=== PATIENT | female | born 2005 | race Asian ===

== ENCOUNTER 2025-01-23 11:50 | Emergency (ER) | payer BC, SELFPAY ==
[2025-01-23 11:58] VITALS: BP 131/89; PULSE 86; RESP 16; TEMP 36.7; O2SAT 99; BMI 20.3
--- NOTE | 2025-01-23 12:03 | ED_ITS ---
HPI - General Adult General Chief complaint: General Medical Stated complaint: n/v, brain fog, sent to r/o internal bleeding Time Seen by Provider: 01/23/25 18:11 Source: patient and family Mode of arrival: ambulatory Limitations: no limitations History of Present Illness ED Provider: Dr. Estela Marie HPI narrative: patient comes to the emergency room complaining of black stool. Patient states that 1 week ago she started taking Effexor. Patient states that she has been experiencing depersonalization . patient has been in touch with her prescriber. However, there was a concern that the patient had black stool. Patient denies any abdominal pain. Denies any rectal pain. Denies any GI issues in the past. Related Data Allergies Allergy/AdvReac Type Severity Reaction Status Date / Time shellfish derived [shellfish] Allergy Severe Anaphylaxis Verified 01/23/25 12:03 Review of Systems 2 Review of Systems: Constitutional : No Weight loss, No Fever, No Chills, No Night Sweats, No Fatigue, No Malaise ENT/Mouth : No Hearing loss, No Ear Pain, No Nasal Congestion, No Sinus Pain, No Hoarseness, No sore throat, No Rhinorrhea, No Swallowing Difficulty Eyes: No Eye Pain, No Swelling, No Redness, No Foreign Body, No Discharge, No Vision Changes Cardiovascular : No Chest Pain, No SOB, No Dyspnea on Exertion, No Orthopnea, No Edema, No Palpitations Respiratory : No Cough, No Sputum, No Wheezing, No Smoke Exposure, No Dyspnea Gastrointestinal : No Nausea, No Vomiting, No Diarrhea, No Constipation, No abdominal Pain, Complaining of black stool Genitourinary : no irregular bleeding, No Dysuria, No Urinary Frequency, No Hematuria, No Urinary Incontinence, No Urgency, No Flank Pain, No Urinary Flow Changes, No Hesitancy Musculoskeletal : No joint pain, No Myalgias, No Joint Swelling Skin : No Skin Lesions, No rash Neuro : No Weakness, No Numbness, No Paresthesias, No Loss of Consciousness, No Dizziness, No Headache Psych : complaining of behavioral changes after taking Effexor, at this time denies feeling depressed or anxious, No SI/HI/AH/VH, No Social Issues, Heme/Lymph: No Bruising, No Bleeding,No Lymphadenopathy Endocrine : No Polyuria, No Polydipsia, No Temperature Intolerance PMF Social History Social History Advance Directives: No Advance Directives Information Provided: No Do you have a plan to hurt others: No Plan Physical Exam ED Vital Signs: Vital Signs - 24 hr 01/23/25 11:58 01/23/25 17:51 Temperature 98.1 F 97.5 F Pulse Rate 86 99 Respiratory Rate 16 16 Blood Pressure 131/89 123/93 H Pulse Oximetry 99 99 Oxygen Delivery Method Room Air Room Air BMI result Body Mass Index 20.3 Const Other: Appearance: Alert. Oriented X3. No acute distress. Eyes: Pupils equal, round and reactive to light. ENT: Pharynx normal. Neck: Normal inspection. Neck supple. No lymph nodes noted. No crepitus CVS: Normal heart rate and rhythm. Pulses normal. Normal S1 and S2 Respiratory: No respiratory distress. Breath sounds normal. No Wheezing. No rales Abdomen: Soft and nontender. No rigidity. No distention. Skin: Skin warm and dry. Normal skin color. Normal skin turgor. Extremities: No lower extremity edema. No Lacerations. No Rash Neuro: Oriented X 3. No motor deficit. No sensory deficit. Moving all extremities. No slurred speech. CN 2 through 12 grossly intact Psych: calm, cooperative, normal affect Course Course Course Narrative: RME, this is a rapid medical exam performed by Cisco Spencer please refer to primary provider for complete H&P- 19-year-old female presents for evaluation of black stool that she describes as a tarry consistency. She was discussing with her primary doctor who recently started her on Effexor. She was referred did not to the ER due to complaining of black stool over the last 2 days. She denies any abdominal pain, bright red stool. She was not on any anticoagulation and has not been using aspirin or NSAIDs. Plan for labs Medical Decision Making Medical Decision Making [facility] [place] Narrative: my interpretation of labs: Normal hematology and chemistry, negative hCG, normal urine, guaiac test is heme negative I discussed with the patient that her stool test was negative for blood. Patient has no abdominal symptoms. It may be secondary to a pigment in the new medication versus something patient may have eaten. Lab Data [facility] [place] Lab Attestation statement: I reviewed the patient's lab results. 01/23/25 12:39 01/23/25 12:39 Labs: Lab Results 01/23/25 01/23/25 Range/Units 12:39 18:44 WBC 4.4 L (4.8-10.8) X10*3/uL RBC 4.70 (4.20-5.50) X10*6/uL Hgb 14.6 (12.0-16.0) g/dl Hct 42.0 (37.0-47.0) % MCV 89.4 (80.0-98.0) fL MCH 31.1 (27.0-33.0) pg MCHC 34.8 (31.0-35.0) g/dl RDW 11.9 (11.0-16.0) % Plt Count 221 (160-400) X10*3/uL MPV 9.7 (9.4-12.3) fL Immature Gran % (Auto) 0.2 (0.0-0.4) % Neut % (Auto) 59.8 (45-73) % Lymph % (Auto) 31.7 (20-40) % [place] % (Auto) 6.9 (2-11) % Eos % (Auto) 0.7 (0-4) % Baso % (Auto) 0.7 (0-2) % Lymph # (Auto) 1.4 (1.2-4.9) X10*3/uL [place] # (Auto) 0.3 (0.1-1.2) X10*3/uL Eos # (Auto) 0.0 (0.0-0.4) X10*3/uL Baso # (Auto) 0.0 (0.0-0.2) X10*3/uL Abs Immat Gran (auto) 0.01 (0.00-0.03) X10*3/uL Absolute Neuts (auto) 2.6 (2.0-8.3) x10*3/uL Absolute Nucleated RBC 0.000 (0.0-0.012) X10*3/uL Nucleated RBC % (auto) 0.0 (0.0-0.2) /100WBC Sodium 139 (135-145) mmol/L Potassium 4.2 (3.3-5.1) mmol/L Chloride 105 (96-108) mmol/L Carbon Dioxide 27 (22-29) mmol/L Anion Gap 11 L (12-20) BUN 11 (9-16) mg/dL Creatinine 0.72 (0.5-1.4) mg/dL Estim Creat Clear Calc 103.1 Estimated GFR > 60 Random Glucose 90 (60-115) mg/dL Calcium 9.4 (8.4-10.2) mg/dL Magnesium 2.4 (1.6-2.6) mg/dL Total Bilirubin 0.5 (0.0-1.0) mg/dL AST 21 (5-31) U/L ALT 11 (0-31) U/L Alkaline Phosphatase 71 (39-117) U/L Total Protein 8.2 H (6.5-8.0) g/dL Albumin 4.6 (3.5-5.0) g/dL Lipase 41 (8-78) U/L Beta HCG, Quant < 2 mIU/mL Urine Color Yellow Urine Appearance Clear Urine pH 5.5 (5.0-9.0) Ur Specific [place] 1.010 (1.005-1.025) Urine Protein Negative (Neg-Trace) mg/dL Urine Glucose (UA) Negative (Negative) mg/dL Urine Ketones Negative (Negative) mg/dL Urine Blood Negative (Negative) Urine Nitrite Negative (Negative) Ur Leukocyte Esterase Negative (Negative) Urine RBC 0-2 (0-2) /HPF Urine WBC 0-5 (0-5) /HPF Ur Squamous Epith Cells 0-2 (0-2) /HPF Urine Bacteria None Seen (None Seen) Hyaline Casts 0-2 (0-2) /LPF Stool Occult Blood NEGATIVE (NEGATIVE) Discharge Plan Discharge Clinical Impression: Black stool, Medication side effect Patient Disposition: Home, Self-Care Instructions: Melena (ED) Additional Instructions: Your stool test was negative for blood. Please follow-up with your primary care physician tomorrow. If you continue having any side effects from your medication, please contact your primary care physician or the prescriber for further instructions. If you have any worsening or new symptoms, please return to the emergency room or call 911 Print Language: Norwegian
[2025-01-23 12:43] LABS: MANUAL DIFF FLAG NO
[2025-01-23 12:51] LABS: Basophils Percent Auto 0.7 % (0-2); Eosinophils Percent Auto 0.7 % (0-4); Hemoglobin 14.6 g/dl (12.0-16.0); Imm Gran Abs Auto 0.01 X10*3/uL (0.00-0.03); Imm Gran Pct Auto 0.2 % (0.0-0.4); Lymphocytes Absolute Auto 1.4 X10*3/uL (1.2-4.9); Lymphocytes Percent Auto 31.7 % (20-40); Mean Corpuscular HGB Conc 34.8 g/dl (31.0-35.0); Mean Corpuscular Hemoglobin 31.1 pg (27.0-33.0); Mean Corpuscular Volume 89.4 fL (80.0-98.0); Mean Platelet Volume 9.7 fL (9.4-12.3); Monocytes Absolute Auto 0.3 X10*3/uL (0.1-1.2); Monocytes Percent Auto 6.9 % (2-11); Neutrophils Absolute Auto 2.6 x10*3/uL (2.0-8.3); Neutrophils Percent Auto 59.8 % (45-73); Platelet Count 221 X10*3/uL (160-400); Red Cell Distribution Width 11.9 % (11.0-16.0); White Blood Count 4.4 X10*3/uL (4.8-10.8)
[2025-01-23 13:05] LABS: Alanine Aminotransferase 11 U/L (0-31); Albumin Level 4.6 g/dL (3.5-5.0); Alkaline Phosphatase 71 U/L (39-117); Anion Gap 11 (12-20); Aspartate Amino Transferase 21 U/L (5-31); Bilirubin Total 0.5 mg/dL (0.0-1.0); Blood Urea Nitrogen 11 mg/dL (9-16); Calcium 9.4 mg/dL (8.4-10.2); Carbon Dioxide 27 mmol/L (22-29); Chloride 105 mmol/L (96-108); Creatinine Clr Calc Pharmacy 103.1; Estimated Glomerular Filt Rate > 60; Glucose Random 90 mg/dL (60-115); Lipase 41 U/L (8-78); Magnesium 2.4 mg/dL (1.6-2.6); Potassium 4.2 mmol/L (3.3-5.1); Sodium 139 mmol/L (135-145); Total Protein 8.2 g/dL (6.5-8.0)
[2025-01-23 13:08] LABS: HCG Quantitative < 2 mIU/mL
[2025-01-23 17:51] VITALS: BP 123/93; PULSE 99; RESP 16; TEMP 36.4; O2SAT 99
--- NOTE | 2025-01-23 18:09 | PC.NURSE ---
pt is well appearing. denies nausea. has slight headache. no neuro deficits. attributes fog to new medication. NAD. awaits provider.
[2025-01-23 18:55] LABS: Appearance Urine Clear; Color Urine Yellow; Glucose Urine UA Negative (Negative); Leukocyte Esterase Urine Negative (Negative); Nitrite Urine Negative (Negative); PH 5.5 (5.0-9.0); Urine Blood Negative (Negative); Urine Ketones Negative (Negative); Urine Protein Negative (Neg-Trace)
[2025-01-23 18:57] LABS: Bacteria Urine None Seen (None Seen); Hyaline Casts Urine 0-2 /LPF (0-2); OBS Int Ctl Valid YES; OBS1 NEGATIVE (NEGATIVE); RBC Urine 0-2 /HPF (0-2); Squamous Epithelial Cell Urine 0-2 /HPF (0-2); WBC Urine 0-5 /HPF (0-5)
--- OUTSIDE RECORDS SUMMARY | 2025-01-23 19:14 | XMS_ITS ---
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 Stay hydrated and continue to rest. Pt vitals are normal. Ambulated out nad noted, states she is not dizzy and no sob at time of discharge FOLLOW UP [place] with Vianey Zee APN 11/22/2021 Last Documented On 2 3:09PM ; [facility] Ordered return to the clinic if condition worsens or new symptoms arise FOLLOW UP [place] with Don MICHAUD 11/13/2021 Last Documented On 2 6:09PM ; [facility] PLAN [Use for s.o.a.p. note free text] FOLLOW UP [place] with Don MICHAUD 11/13/2021 Last Documented On 2 6:09PM ; Urgent [facility] Ordered go to the emergency room if condition worsens FOLLOW UP [place] with Jyoti Butler M.D. 06/09/2018 Last Documented On 8 10:22AM ; Urgent [facility] Ordered return to the clinic if condition worsens or new symptoms arise FOLLOW UP [place] with Jyoti Butler M.D. 06/09/2018 Last Documented On 8 10:22AM ; [facility] Pending Tests Order Diagnosis Results Due Ordering P rovider Lab AMYLASE 11/11/17 Tracy Yap [employer] SUPERVISOR Last Documented On 8 12:35PM ; [facility] Lab COMPREHENSIVE METABOLIC PROFILE 10/29 01/13 Tracy Yap [employer] SUPERVISOR Last Documented On 8 12:35PM ; [facility] Lab LIPASE 11/11/17 Tracy Yap [employer] SUPERVISOR Last Documented On 8 12:35PM ; [facility] Lab COMPLETE BLOOD COUNT (CBC) WITHDIFFERENTIAL 11/11/17 Tracy Yap [employer] SUPERVISOR Last Documented On 8 12:35PM ; [facility] Labs Order COVID19 SARS PCR Encounter for s creening for COVID-19 11/13/21 Don MICHAUD Last Documented On 2 2:42PM ; [facility] Education and Decision Aids were provided during visit for: Education and counseling Last Documented On 2 2:32PM ; [facility] Assessments Includes: Assessments for all patient encounters Findings Encounter Date Cough Acute URI Dyspnea Ches t pain r/o ACS FOLLOW UP [place] with Don MICHAUD 11/13/2021 Last Documented On 2 6:09PM ; [facility] Acute pharyngitis FOLLOW UP [place] with Jyoti mendoza M.D. 06/09/2018 Last Documented On 8 10:22AM ; [facility] Otitis media FOLLOW UP [place] with Jyoti moraes M.D. 06/09/2018 Last Documented On 8 10:22AM ; [facility] Abdominal pain NEW PATIENT [place] with Tracy edwards [employer] SUPERVISOR 11/04/2017 Last Documented On 8 12:45PM ; [facility] Instructions Includes: Instructions for all patient encounters Education and Decision Aids were provided during visit for: Education and counseling Last Documented On 2 2:32PM ; [facility] Medical Equipment - Implanted Devices Includes: Current and historical Devices No Medical Equipment Recorded Medications Includes: Current and historical Medications Past Medications on file Promethazine-DM 6.25-15 MG/5ML Oral Syrup 11/13/2021 - 11/18/2021 Provider: Don MICHAUD Diagnosis: Cough, unspecifi ed Take 5ml by mouth every 6 hours as needed for co ugh Last Documented On 2 2:50PM By Don MICHAUD ; [facility] Albuterol Sulfate HFA 108 (90 Base) MCG/ACT Inhalation Aerosol Solution 11/13/2021 - 12/13/2021 Provider: Don MICHAUD Diagnosis: Dyspnea, unspeci fied Inhale 1-2 puffs every 4-6 h ours as needed for shortness of breath Last Documented On 2 2:50PM By Don MICHAUD ; [facility] Azithromycin 250mg Mouth/Throat Packet 11/13/2021 - Provider: Diagnosis: Last Documented On 2 6:36PM By Roxy Inman ; [facility] Amox[facility] 875MG Oral Tablet 06/09/2018 - 06/19/2018 Provider: Jyoti Butler M.D. Diagnosis: Acute serous nilson tis media, left ear 1 twice a day Last Documented On 8 10:16AM By Roxy Inman ; [facility] Medications Administered Includes: Administered Medications in patient's chart No Administered Medications Recorded Results Includes: Results from 01/24/2024 through 01/23/2025 No Results Recorded For Specified Dates History of Present Illness History of Present Illness not supported for this document type No History of Present Illness Recorded Social History Description Last Updated Caffeine use 11/13/2021 Last Documented On 2 6:09PM ; [facility] [place] Not a current smoker 11/13/2021 Last Documented On 2 6:09PM ; [facility] [place] Not using alcohol 11/13/2021 Last Documented On 2 6:09PM ; [facility] Not using drugs 11/13/2021 Last Documented On 2 6:09PM ; [facility] Smoking Status Unknown Procedures and Surgical History Surgical History Last Updated No surgical / procedural history or no s ignificant history 11/22/2021 Last Documented On 2 3:09PM ; [facility] Medical History Includes: Medical History in patient's chart Description Last Updated No medical history or no significant his tory 11/22/2021 Last Documented On 2 3:09PM ; [facility] h/o heart mumur 11/13/2021 Last Documented On 2 6:09PM ; [facility] No recent change in medical history 10/29 Last Documented On 2 6:09PM ; [facility] Family History Includes: Family History in patient's chart No Family History Recorded Review of Systems Review of Systems not supported for this document type No Review of Systems Recorded Mental Status Description Oriented to time, place, and person No anxiety Functional Status No Functional Status Recorded Physical Exam Physical Exam not supported for this document type No Physical Exam Recorded Allergies Includes: Active, inactive, and resolved Allergies No Known Allergies Insurance Includes: Active Insurance Policies Plan Name Member ID Group # Subscriber Relationship Effect shannon Dates 1 - [facility] S CODE FACILITY BILLING [id number] Beto Brady Child 10/11/2011 - Unknown Clinical Notes Includes: Signed Clinical Notes starting from 09/01/2022 No Clinical Notes Recorded
--- OUTSIDE RECORDS SUMMARY | 2025-01-23 19:14 | XMS_ITS | CCD ---
Author Name Donnell CANO, Hina Address [address] [place] [address] Phone Organization [facility] Phone Care Team Providers Care Nursing Tech Name Role Phone Bela Fenton DO Primary Care Provider Un available Unavailable Chronic Care Management Unavaila ble Summary Purpose DataExchange Insurance Providers Payer name Policy type / Coverage type Covered constitution party ID Effective Begin Date Effective End Date [facility] [id number] Unknown Unknown Family History Family History data not found Problems Condition Codes Effective Dates Condition St atus Hyperlipidemia Unknown 04/21/2023 Active Mixed hyperlipidemia ICD-10: E78.2 ICD-9: 272.4 04/21/2023 Active Medication Administered No Medication Administered data Results Observation Observation Code Item Item Code Result Date Service Location CBC W/DIFF 924863 WBC 6.5 x10E3/uL [address] [facility] [address] [id number] CBC W/DIFF 771656 RBC 4.89 x10E6/uL [address] [facility] [address] [id number] CBC W/DIFF 019132 Hemoglobin 14.7 g/dL [address] [facility] [address] [id number] CBC W/DIFF 412434 Hematocrit 43.0 % [address] [facility] [address] [id number] CBC W/DIFF 017655 MCV 88 fL [address] [facility] [address] [id number] CBC W/DIFF 288612 MCH 30.1 pg [address] [facility] [address] [id number] CBC W/DIFF 053582 MCHC 34.2 g/dL 023 [facility] [address] [place], [place] [id number] CBC W/DIFF 300664 RDW 12.6 % [address] [facility] [address] [id number] CBC W/DIFF 377765 Platelets 284 x10E3/uL [address] [facility] [address] [id number] CBC W/DIFF 633449 Neutrophils 66 % [address] [facility] [address] [id number] CBC W/DIFF 150653 Lymphs 27 % [address] [facility] [address] [id number] CBC W/DIFF 779830 Monocytes 6 % [address] [facility] [address] [id number] CBC W/DIFF 235197 Eos 1 % [address] [facility] [address] [id number] CBC W/DIFF 512776 Basos 0 % [address] [facility] [address] [id number] CBC W/DIFF 228037 Immature Cells 03/29 09/29 [address] [facility] [address] [id number] CBC W/DIFF 975660 Neutrophils (Absolute) 4.2 x10E3/uL [address] [facility] [address] [id number] CBC W/DIFF 040493 Lymphs (Absolute) 1.8 x10E3/uL [address] [facility] [address] [id number] CBC W/DIFF 516053 Monocytes(Absolu t e) 0.4 x10E3/uL [address] [facility] [address] [id number] CBC W/DIFF 716093 Eos (Absolute) 0.1 x10E3/uL [address] [facility] [address] [id number] CBC W/DIFF 204775 Baso (Absolute) 0.0 x10E3/uL [address] [facility] [address] [id number] CBC W/DIFF 507200 Immature Granulocytes 0 % [address] [facility] [address] [id number] CBC W/DIFF 404999 Immature Grans (Abs) 0.0 x10E3/uL [address] [facility] [id number] CBC W/DIFF 900221 NRBC [facility] [facility] [id number] CBC W/DIFF 260201 Hematology Comments: [address] [id number] LIPID PANEL 515570 Cholesterol, Total 135 mg/dL [address] [facility] [id number] LIPID PANEL 935168 Triglycerides 121 mg/dL 03/29 09/[address] [id number] LIPID PANEL 417767 HDL Cholesterol 2085-9 41 mg/dL [address] [id number] LIPID PANEL 857916 VLDL Cholesterol Sam 22 mg/dL [address] [id number] LIPID PANEL 995185 LDL Chol Calc ([facility]) 72 mg/dL 0[address] [facility] [id number] LIPID PANEL 664239 Comment: [address] [id number] Urinalysis, Routine 415411 Specific [place] 1.017 [address] [facility] [id number] Urinalysis, Routine 172443 pH 5.[address] [id number] Urinalysis, Routine 908975 Urine-Color Yellow [address] [facility] [id number] Urinalysis, Routine 969181 Appearance Clear [address] [id number] Urinalysis, Routine 585459 WBC Esterase Negative [address] [facility] [id number] Urinalysis, Routine 324339 Protein Negative 023 [facility] [place] [address] [place] [address] [id number] Urinalysis, Routine 025252 Glucose Negative 023 [facility] [place] [address] [place] [address] [id number] Urinalysis, Routine 118289 Ketones Negative 023 [facility] [address] [place] [address] [id number] Urinalysis, Routine 258746 Occult Blood 3+ [address] [facility] [address] [id number] Urinalysis, Routine 685855 Bilirubin Negative [address] [facility] [address] [id number] Urinalysis, Routine 265391 Urobilinogen,Semi -Qn 0.2 mg/dL [address] [facility] [address] [id number] Urinalysis, Routine 385225 Nitrite, Urine Negative [address] [facility] [address] [id number] Urinalysis, Routine 261986 Microscopic Examination See below: 023 [facility] [place] [address] [place] [address] [id number] Microscopic Examination 318052 WBC 6-10 /hpf 023 [facility] [place] [address] [place] [address] [id number] Microscopic Examination 549530 RBC >30 /hpf 023 [facility] [place] [address] [place] [address] [id number] Microscopic Examination 401073 Epithelial Cells (non renal) 0-10 /hpf 023 [facility] [place] [address] [place] [address] [id number] Microscopic Examination 800849 Epithelial Cells (renal) [address] [facility] [address] [id number] Microscopic Examination 400038 Casts None seen /lpf 023 [facility] [place] [address] [place] [address] [id number] Microscopic Examination 718437 Cast Type 023 [facility] [place] [address] [place] [address] [id number] Microscopic Examination 057752 Crystals [address] [facility] [address] [id number] Microscopic Examination 106733 Crystal Type 023 [facility] [address] [place] [id number] Microscopic Examination 536139 Mucus Threads [address] [facility] [address] [id number] Microscopic Examination 550293 Bacteria None seen [address] [facility] [address] [id number] Microscopic Examination 831105 Yeast 0[address] [facility] [id number] Microscopic Examination 563032 Trichomonas [address] [facility] [address] [id number] Microscopic Examination 014480 Comment [address] [facility] [address] [id number] TSH 328276 TSH 1.630 uIU/mL [address] [facility] [address] [id number] COMPREHEN METABOLIC PANEL 2 180431 Glucose 88 mg/dL 023 [facility] [address] [id number] COMPREHEN METABOLIC PANEL 2 029452 BUN 3094-0 6 mg/dL [address] [facility] [address] [id number] COMPREHEN METABOLIC PANEL 2 963833 Creatinine 0.76 mg/dL [address] [facility] [address] [id number] COMPREHEN METABOLIC PANEL 2 780351 eGFR 116 mL/min/1.73 [address] [facility] [address] [id number] COMPREHEN METABOLIC PANEL 2 059099 BUN/Creatinine Ratio 8 [address] [facility] [address] [id number] COMPREHEN METABOLIC PANEL 2 614970 Sodium 138 mmol/L [address] [facility] [address] [id number] COMPREHEN METABOLIC PANEL 2 021872 Potassium 4.2 mmol/L [address] [facility] [address] [id number] COMPREHEN METABOLIC PANEL 2 292449 Chloride 103 mmol/L 023 [facility] [address] [id number] COMPREHEN METABOLIC PANEL 2 441237 Carbon Dioxide, Total 21 mmol/L 023 [facility] [address] [id number] COMPREHEN METABOLIC PANEL 2 106767 Calcium 9.5 mg/dL 0[address] [facility] [id number] COMPREHEN METABOLIC PANEL 2 930130 Protein, Total 7.6 g/dL [address] [id number] COMPREHEN METABOLIC PANEL 2 003166 Albumin 4.8 g/dL 0[facility] [id number] COMPREHEN METABOLIC PANEL 2 999903 Globulin, Total 2.8 g/dL [address] [id number] COMPREHEN METABOLIC PANEL 2 881751 A/G Ratio 1.[address] [id number] COMPREHEN METABOLIC PANEL 2 588475 Bilirubin, Total 0.5 mg/dL 0[facility] [id number] COMPREHEN METABOLIC PANEL 2 164706 Alkaline Phosphatase 85 IU/L 0[address] [facility] [id number] COMPREHEN METABOLIC PANEL 2 122337 AST (SGOT) 18 IU/L [address] [id number] COMPREHEN METABOLIC PANEL 2 445023 ALT (SGPT) 20 IU/L [address] [id number] Procedures Procedure Codes Date BMI < 30 AND > 22 was calculated and documented CPT-4: G8420 03/26/2023 SYST BP LT 130 MM HG CPT-4: 3074F 03/26/2023 DIAST BP <80 MM HG CPT-4: 3078F 03/26/2023 Vital Signs Date Vital 03/26/2023 Blood Pressure 1: 118/75 Code: 8480-6 BMI: 23.2 Code: 75558-1 Height: 5'3 Code: 8302-2 Weight: 131 lbs Code: 29313-1 Reason For Visit Reason For Visit Effective Dates Notes well woman exam (18-39 years) 03/26/2023 Encounters Encounter Performer Location Location Address Codes Date (31059) PREV VISIT NEW AGE 18-39 Diagnosis: Body mass index (BMI) pediatric, 5th percentile to less than 85th percentile for age[ICD10: Z68.52] Diagnosis: Encounter for general adult medical examination without abnormal findings[ICD10: Z00.00] Hina Donnell [facility] [address] [place] [address] CPT-4: 02602 03/26/2023 Plan of Care Planned Activity Notes Codes Status Date Care Plan: Lipid Panel With LDL/HDL Ratio (10-12 HOUR FAST) LOINC : 2088-09 Pending 04/23/2023 Appointment: Gretchen Zazueta WPtel: [id number] NEW PATIENT PCP 10/20 MIN 2022 Care Plan: CBC W/DIFF LOINC : 57 021-8 Ordered 03/26/2023 Care Plan: COMPREHEN METABOLIC PANEL LOINC : 97449-7 Ordered 03/26/2023 Care Plan: TSH Ordered 03/26/2023 Care Plan: Urinalysis, Routine Ordered 03/26/2023 Care Plan: Lipid Panel With LDL/HDL Ratio (10-12 HOUR FAST) LOINC : 2088-09 Ordered 03/26/2023 Instructions Comment Date get korina kelly due . 03/26/2023 Medical Equipment No Medical Equipment data Advance Directives No Advance Directive data
--- OUTSIDE RECORDS SUMMARY | 2025-01-23 19:14 | XMS_ITS | CCD ---
Author Name Hina Jacobo MD Address [address] [place] [address] Phone Organization [facility] Phone Care Team Providers Care Record Changer Tester Name Role Phone Bela Fenton DO Primary Care Provider Un available Unavailable Chronic Care Management Unavaila ble Summary Purpose DataExchange Insurance Providers Payer name Policy type / Coverage type Covered republican ID Effective Begin Date Effective End Date [facility] [id number] Unknown Unknown Family History Family History data not found Medication Administered No Medication Administered data Procedures Procedure Codes Date BMI < 30 AND > 22 was calculated and documented CPT-4: G8420 03/26/2023 SYST BP LT 130 MM HG CPT-4: 3074F 03/26/2023 DIAST BP <80 MM HG CPT-4: 3078F 03/26/2023 Vital Signs Date Vital 03/26/2023 Blood Pressure 1: 118/75 Code: 8480-6 BMI: 23.2 Code: 42500-3 Height: 5'3 Code: 8302-2 Weight: 131 lbs Code: 78889-5 Reason For Visit Reason For Visit Effective Dates Notes well woman exam (18-39 years) 03/26/2023 Encounters Encounter Performer Location Location Address Codes Date (44675) PREV VISIT NEW AGE 18-39 Diagnosis: Body mass index (BMI) pediatric, 5th percentile to less than 85th percentile for age[ICD10: Z68.52] Diagnosis: Encounter for general adult medical examination without abnormal findings[ICD10: Z00.00] [facility] [address] [place] [address] CPT-4: 91460 03/26/2023 Plan of Care Planned Activity Notes Codes Status Date Care Plan: CBC W/DIFF LOINC : 57 021-8 Ordered 03/26/2023 Care Plan: COMPREHEN METABOLIC PANEL LOINC : 25998-5 Ordered 03/26/2023 Care Plan: TSH Ordered 03/26/2023 Care Plan: Urinalysis, Routine Order ed 03/26/2023 Care Plan: Lipid Panel With LDL/HDL Ratio (10-12 HOUR FAST) LOINC : 2089-1 Ordered 03/26/2023 Instructions Comment Date get bw steffenkimberlyncordell due . 03/26/2023 Medical Equipment No Medical Equipment data Advance Directives No Advance Directive data
--- OUTSIDE RECORDS SUMMARY | 2025-01-23 19:14 | XMS_ITS | Referral Summary ---
Author Organization [facility] Address [address] [place] [phone] Phone Care Team Providers Care Data Modeling Specialist Name Role Phone Unavailable Primary Care Provider Unavailabl e Social History Tobacco Use Types Packs/Day Years Used Date Smoking Tobacco: Never Assessed Comments Unknown Sex and Gender Information Value Date Recorded Sex Assigned at Not on file Legal Sex Female 11:54 AM EDT Gender Identity Not on file Sexual Orientation Not on file Plan of Treatment Not on file Insurance STATE BENEFITS
--- OUTSIDE RECORDS SUMMARY | 2025-01-23 19:14 | XMS_ITS ---
Author Organization [facility] Address [address] [place] [address] Care Team Providers Care Fruit Or Nut Farm Worker Name Role Phone Paco Sherman Primary Care Provider REASON FOR VISIT PRTL: Accommodations for College Encounters Encounter Location Date Provider Diagnosis [address] [address] 08/08/2024 Paco Sherman PLAN OF TREATMENT No Information Progress Notes * Obie GUSTAFSONSandyOB:2005 (19 yo F)Acc No.[id number]:08/08/2024 Patient:??Poppy GUSTAFSON :2005?Age:19 Y?Sex:Fe male Address:[address] [place] [address] Subjective: * Chief Complaints: * ?PRTL: Accommodations f or College * Medical History:? * Surgical History:?? * Hospitalization/Major Diagno stic Procedure:?? * Medications:?? Objective: Assessment: Plan: * Treatment: * Procedure Codes:?? * true * Date:??
--- OUTSIDE RECORDS SUMMARY | 2025-01-23 19:14 | XMS_ITS | Clinical Summary ---
Author Organization [facility] Address [address] [place] [address] Care Team Providers Care Audiovisual Tech Name Role Phone Nikky Andrews MD Primary Care Provider Allergies Active Allergy Reactions Criticality Noted Date Comments Pollen Extract Itching Low 03/21/2024 Including some fruits Shellfish Anaphylaxis High 05/04/2023 Shellfish-Derived Products Anaphylaxis High 03/21/20 24 Medications EPINEPHrine 0.3 mg/0.3 mL SOAJ injection Inject 0.3 mL into the muscle one time. 04/07/2024 Active Active Problems No known active problems Immunizations Immunization Administration Dates Next Due DTaP 2005,2005 Dtap - Hib 08/13/2006 HIB external 2005 Hep A Vaccine Ped/adol-3 Dose 02/11/2007 Hep B, Unspecified Formulation 2005,2004 Hib (Prp-omp) 02/26/2006,2005 IPV 2005,2005 Influenza, High Dose Seasonal 05/29/2016, 013 MENINGOCOCCAL/MENOMUNE 05/29/2016 MMR 05/07/2006 Pediarix(diphtheria,tetanus, pertussis ,hep B,polio) 2005 Prevnar 7 Pediatric 05/07/2006, 5,2005,2004 TDaP 05/29/2016 Varicella 02/26/2006 Family History Medical History Relation Comments Diabetes Father MVA Father LINGERING NIURKA ISSUES FOLLLOWING MVA Diabetes Mother Hyperlipidemia Mother Hypertension Mother Arthritis Paternal Grandfather Gout Paternal Uncle Relation Status Comments Father Mother Paternal Grandfather Paternal Uncle Other Social History Tobacco Use Types Packs/Day Years Used Date Smoking Tobacco: Never Smokeless Tobacco: Never Alcohol Use Standard Drinks/Week Comments Yes 1 (1 standard drink = 0.6 oz pur e alcohol) Comments No Sex and Gender Information Value Date Recorded Sex Assigned at Not on file Legal Sex Female 2:57 PM EDT Gender Identity Not on file Sexual Orientation Not on file Last Filed Vital Signs Vital Sign Reading Time Taken Comments Blood Pressure 120/78 10/06/2024 8:58 AM EST Pulse - - Temperature 36.6 ??C (97.8 ??F) 10/06/2024 8:58 AM ES T Respiratory Rate - - Oxygen Saturation - - Inhaled Oxygen Concentration - - Weight 53.5 kg (118 lb) 10/06/2024 8:58 AM EST Height 160 cm (5' 3 ) 10/06/2024 8:58 AM EST Body Mass Index 20.9 10/06/2024 8:58 AM EST Plan of Treatment Upcoming Encounters Date Type Department Care Team (Late st Contact Info) Description 02/08/2025 9:00 AM EDT Office Visit [facility] - Rheumatology [address], [address] [place] [address] [facility] Lu [facility] [address] [place] [phone] Health Maintenance Due Date Last Done Comments HEPATITIS C SCREENING 2005 Hepatitis A Vaccine (2 of 2 - 2-dose series) 08/14/2007 02/11/2007 HIV SCREENING ONCE 02/06/2020 HPV Vaccine (1 - 3-dose series) 02/06/2020 LIPIDS 2023 COVID-19 Vaccine ( season) 2024 03/02/2021, 02/09/2021 INFLUENZA Vaccine (Season Ended) 2025 05/29/2016, 07/13/2013 DTAP/TDAP/TD Vaccine (6 - Td or Tdap) 05/29/2026 05/29/2016, 08/13/2006, 2005, Additional history exists ZOSTER VACCINES (1 of 2) 2055 Pneumococcal 0-49 Vaccine Aged Out 2005, 2005, 2005, Additional history exists No longer eligible based on patient's age to complete this topic MENINGITIS ACWY Vaccine Aged Out 05/29/2016 No l onger eligible based on patient's age to complete this topic Insurance [employer] Care Teams Audiovisual Tech Relationship Specialty Start Date End Date Nikky Andrews MD [address] [place] [id number] PCP - General Family Medicine 04/20/24
--- OUTSIDE RECORDS SUMMARY | 2025-01-23 19:14 | XMS_ITS ---
Author Organization [facility] [employer] [facility] Address [address] [place] [address] Care Team Providers Care Airline Mechanic Name Role Phone Paco Sherman Primary Care Provider Nikky Woodward [phone] REASON FOR VISIT PRTL: Accommodations for College Encounters Encounter Location Date Provider Diagnosis [address] [address] 04/28/2024 Nikky Woodward PLAN OF TREATMENT No Information Progress Notes * GUSTAFSON, LianetOB:2005 (19 yo F)Acc No.[id number]:04/28/2024 Patient:??Poppy GUSTAFSON :2005?Age:19 Y?Sex:Fe male Address:[address] [place], [place] [id number] Subjective: * Chief Complaints: * ?PRTL: Accommodations f or College * Medical History:? * Surgical History:?? * Hospitalization/Major Diagno stic Procedure:?? * Medications:?? Objective: Assessment: Plan: * Treatment: * Procedure Codes:?? * true * Date:??
--- OUTSIDE RECORDS SUMMARY | 2025-01-23 19:14 | XMS_ITS | Clinical Summary ---
Author Organization [facility] Address [address] [place] [address] Phone Care Team Providers Care Air Conditioning Insulation Installer Name Role Phone Unavailable Unavailable Unavailable Reason for Visit and Chief Complaint The Chief Complaint is: Pt presents in the clinic for work physical Problems Includes: Problems addressed during this encounter and other active Problems No Active Problems Plan of Treatment -Patient here for work physical -Physical exam unremarkable and vital signs stable -Forms filled and returned to patient/family -Follow up with PMD yearly for well visit and vaccines or sooner if needed -Encouraged to obtain COVID booster vaccine - Last Documented On 03/25/2022 6:43PM ; [facility] Pending Tests Order Diagnosis Results Due Ordering P rovider Labs Order COVID19 SARS PCR Encounter for s creening for COVID-19 11/13/21 Don MICHAUD Last Documented On 2 2:42PM ; [facility] OFFICE PROCEDURES VISUAL ACUITY SCREEN Encounter for other general examination 03/25/22 Don MICHAUD Last Documented On 2 6:41PM ; [facility] Assessments Includes: Assessments from this encounter No Assessments Recorded Medical Equipment - Implanted Devices Includes: Current Devices No Medical Equipment Recorded Medications Includes: Medications discussed during this encounter and other current Medications Discontinued / Stopped on this date on 11/13/2021 Azithromycin 250mg Mouth/Throat Packet Pr ovider: Diagnosis: Last Documented On 2 6:36PM By Roxy Inman ; [facility] Past Medications on file Promethazine-DM 6.25-15 MG/5ML Oral Syrup 11/13/2021 - 11/18/2021 Provider: Don MICHAUD Diagnosis: Cough, unspecifi ed Take 5ml by mouth every 6 hours as needed for co ugh Last Documented On 2 2:50PM By Don MICHAUD ; [facility] Albuterol Sulfate HFA 108 (90 Base) MCG/ACT Inhalation Aerosol Solution 11/13/2021 - 12/13/2021 Provider: Don MICHAUD Diagnosis: Dyspnea, unspeci fied Inhale 1-2 puffs every 4-6 h ours as needed for shortness of breath Last Documented On 2 2:50PM By Don MICHAUD ; [facility] Amoxicillin 875MG Oral Tablet 06/09/2018 - 06/19/2018 Provider: Jyoti Butler M.D. Diagnosis: Acute serous nilson tis media, left ear 1 twice a day Last Documented On 8 10:16AM By Roxy Inman ; [facility] Medications Administered Includes: Administered Medications from this encounter No Administered Medications Recorded Vital Signs Includes: Vital Signs from this encounter Vital Name 03/25/2022 06:26P Blood Pressure Sitting (mmHg) 97/67 Pulse Rate-Sitting (bpm) 87 Temp-Oral (F) 97.4 Height (in) 63 Weight (lb) 110 Body Mass Index (kg/m2) 19.5 BMI Percentile (percentile) 30 Body Surface Area (m2) 1.5 Oxygen Saturation (%) 99 Last Documented: On 03/25/2022 6:28PM ; [facility] Results Includes: Results discussed during this encounter No Results Recorded For Specified Dates History of Present Illness Includes: History of Present Illness from this encounter STEPHY Brady is a 17 year old female. 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 Feeling well. Denies any complaints. Denies any family history of sudden cardiac . Immunizations up to date. Vaccinated for COVID x2 (february 2021). Social History Description Last Updated Caffeine use 11/13/2021 Last Documented On 2 6:29PM ; [facility] Not a current smoker 11/13/2021 Last Documented On 2 6:29PM ; [facility] Not using alcohol 11/13/2021 Last Documented On 2 6:29PM ; [facility] Not using drugs 11/13/2021 Last Documented On 2 6:29PM ; [facility] Smoking Status Unknown Procedures and Surgical History Includes: Procedures from this encounter Procedures Code Diagnosis Performing Provider Service L ocation Service Date education and instructions Last Documented On 2 6:41PM ; [facility] VL- ~VR- ~Both- ~Correct ed Last Documented On 2 6:31PM ; [facility] Surgical History Last Updated No surgical / procedural history or no s ignificant history 11/22/2021 Last Documented On 2 6:29PM ; [facility] Medical History Includes: Medical History addressed during this encounter Description Last Updated No medical history or no significant his tory 11/22/2021 Last Documented On 2 6:29PM ; [facility] No recent change in medical history 10/29 Last Documented On 2 6:29PM ; [facility] Family History Includes: Family History addressed during this encounter No Family History Recorded Review of Systems Includes: Review of Systems from this encounter Systemic: Not feeling poorly (malaise). No fever, no chills, no night sweats, and no recent weight change. No night sweats. Head: No headache, no facial pain, and no sinus pain. Neck: No neck pain, no neck stiffness, and no lump or swelling in the neck. Eyes: No vision problems and no eye pain. Otolaryngeal: No hearing loss, no earache, no nasal discharge, no epistaxis, no hoarseness, no sore throat, and no mouth sores. Cardiovascular: No chest pain or discomfort, no palpitations, and the heart rate was not fast. Pulmonary: No dyspnea, no cough, no hemoptysis, and no wheezing. Gastrointestinal: Normal appetite, no dysphagia, and no heartburn. No nausea, no vomiting, no abdominal pain, and no melena. No diarrhea. Genitourinary: No hematuria and no increase in urinary frequency. No dysuria. Musculoskeletal: No muscle aches, no localized joint pain, and no localized joint stiffness. Neurological: No dizziness, no vertigo, no fainting, no motor disturbances, and no sensory disturbances. Psychological: No anxiety, no depression, and no sleep disturbances. Skin: No pruritus. No skin lesions and no rash. Mental Status Includes: Mental Status from this encounter Description Oriented to time, place, and person No anxiety Functional Status Includes: Functional Status from this encounter No Functional Status Recorded Physical Exam Includes: Physical Exam from this encounter Allergies Includes: Active Allergies No Known Allergies Encounters Encounter Provider Location Date Check-In Time Check-Out Time Diagnosis Work Physical Don MICHAUD [facility] 03/25/20 22 6:23PM 6:50PM Insurance Includes: Active Insurance Policies Plan Name Member ID Group # Subscriber Relationship Effect shannon Dates - [facility] S CODE FACILITY BILLING [id number] Beto Brady 10/11/2011 - Unknown Clinical Notes Includes: Clinical Notes from this encounter No Clinical Notes Recorded
--- OUTSIDE RECORDS SUMMARY | 2025-01-23 19:14 | XMS_ITS | CCD ---
Author Name Mica Fenton DO, cia S Address [address] [place] [address] Phone Organization [employer] Phone Care Team Providers Care Accounting Clerk Name Role Phone Bela Fenton DO Primary Care Provider Un available Unavailable Chronic Care Management Unavaila ble Summary Purpose DataExchange Insurance Providers Payer name Policy type / Coverage type Covered democrat ID Effective Begin Date Effective End Date [facility] [id number] Unknown Unknown Family History Family History data not found Problems Condition Codes Effective Dates Condition St [facility]us Hyperlipidemia Unknown 04/21/2023 Active Mixed hyperlipidemia ICD-10: E78.2 ICD-9: 272.4 04/21/2023 Active Medication Administered No Medication Administered data Reason For Visit No Reason For Visit data Plan of Care Planned Activity Notes Codes Status Date Care Plan: Lipid Panel With LDL/HDL Ratio (10-12 HOUR FAST) LOINC : 2089-1 Pending 04/23/2023 Appointment: Gretchen Zazueta WPtel: [id number] NEW PATIENT PCP 10/20 MIN 2022 Medical Equipment No Medical Equipment data Advance Directives No Advance Directive data
--- OUTSIDE RECORDS SUMMARY | 2025-01-23 19:14 | XMS_ITS | Clinical Summary ---
Author Organization [facility] Address [address] [place] [address] Phone Care Team Providers Care Online Media Buyer Name Role Phone Unavailable Unavailable Unavailable Reason for Visit and Chief Complaint The Chief Complaint is: 16y/old headache nasal congestion, vomiting, cough x 5days Problems Includes: Problems addressed during this encounter and other active Problems No Active Problems Plan of Treatment - Return to the clinic if condition worsens or new symptoms arise - Last Documented On 11/13/2021 6:09PM ; [facility] PLAN [Use for s.o.a.p. note free text]. - Last Documented On 11/13/2021 6:09PM ; [facility] -EKG reviewed, Sinus tachycardia 111bpm, T wave inversion noted in lead III, V2/V3 concerning for ischemia. Advised mother and patient to go to ED. Mother states she will drive her to ED now If discharged from ED -test performed, PCR pending, quarantine until results -finish course of antibiotics -take medications as prescribed -supportive treatment advised - tylenol or ibuprofen prn for pain or fever, OTC flonase as needed, take vitamin c/d/zinc, increase hydration, salt water gargles -check pulse ox if develop shortness of breath -If develop worsening of chest pain, SOB, or fever not improving with antipyretics, go to ED -f/u with concrete inspector in 2-3 days - Last Documented On 11/13/2021 6:09PM ; [facility] Pending Tests Order Diagnosis Results Due Ordering P rovider Labs Order COVID19 SARS PCR Encounter for s creening for COVID-19 11/13/21 Don MICHAUD Last Documented On 2 2:42PM ; [facility] CARDIAC & PULMONARY EKG Chest pain on breathing Don MICHAUD Last Documented On 2 2:49PM ; [facility] Education and Decision Aids were provided during visit for: Education and counseling Last Documented On 2 2:32PM ; [facility] Assessments Includes: Assessments from this encounter Findings Cough - Last Documented On 11/13/2021 6:09PM ; [facility] Acute URI - Last Documented On 11/13/2021 6:09PM ; [facility] Dyspnea - Last Documented On 11/13/2021 6:09PM ; [facility] Chest pain r/o ACS. - Last Documented On 11/13/2021 6:09PM ; [facility] Instructions Includes: Instructions from this encounter Education and Decision Aids were provided during visit for: Education and counseling Last Documented On 2 2:32PM ; [facility] Medical Equipment - Implanted Devices Includes: Current Devices No Medical Equipment Recorded Medications Includes: Medications discussed during this encounter and other current Medications New / Renewed during this visit Don MICHAUD on 11/13/2021 Promethazine-DM 6.25-15 MG/5 ML Oral Syrup Provider: Don MICHAUD 5 day supply: 100 mL, 0 refills Diagnosis: Cough, unspecified Take 5ml by mouth every 6 ho urs as needed for cough Pharmacy: [facility] #[id number] - [phone] [facility] [place] [address] - Last Documented On 2 2:50PM By Don MICHAUD ; [facility] Albuterol Sulfate HFA 108 (9 0 Base) MCG/ACT Inhalation Aerosol Solution Provider: Don MICHAUD 30 day supply: 8.5 gram, 0 refills Diagnosis: Dyspnea, unspecified Inhale 1-2 puffs every 4-6 h ours as needed for shortness of breath Pharmacy: [facility] #[id number] - [address] [place] [address], [id number] - Last Documented On 2 2:50PM By Don MICHAUD ; [facility] Medications Administered Includes: Administered Medications from this encounter No Administered Medications Recorded Vital Signs Includes: Vital Signs from this encounter Vital Name 11/13/2021 02:23P Blood Pressure Sitting R 115/80 BP Cuff Size Regular Pulse Rate-Sitting (bpm) 118 Temp-Oral (F) 97.6 Height (in) 63 Weight (lb) 111 Body Mass Index (kg/m2) 19.7 BMI Percentile (percentile) 34 Body Surface Area (m2) 1.5 Oxygen Saturation (%) 98 Last Documented: On 11/13/2021 2:25PM ; [facility] Results Includes: Results discussed during this encounter No Results Recorded For Specified Dates History of Present Illness Includes: History of Present Illness from this encounter STEPHY Brady is a 16 year old female. Here for PCR COVID testing and evaluation with mother. Reports cough with phlegm, nasal congestion, PND, headache, light headedness for 5 days. Also reports 2 episdoes N/V that began yesterday. +occasional shortness of breath and L sided chest pain only upon deep breathing along with palpitations since yesterday. Was evaluated at [facility] 2 days ago, negative for strep, mono. Had CXR at that time and noted to have some scratches on left side. Has been taking zpack as prescribed #3/5 with some relief. Tolerating PO intake. Vaccinated for covid x3 including booster. Denies radiation of chest pain, diaphoresis, numbness, tingling, earache, neck pain, palpitations, abdominal pain, recent travel, leg swelling or trauma. - Otolaryngeal symptoms. - Pulmonary symptoms. Social History Description Last Updated Caffeine use 11/13/2021 Last Documented On 2 6:09PM ; [facility] Not a current smoker 11/13/2021 Last Documented On 2 6:09PM ; [facility] Not using alcohol 11/13/2021 Last Documented On 2 6:09PM ; [facility] Not using drugs 11/13/2021 Last Documented On 2 6:09PM ; [facility] Smoking Status Unknown Procedures and Surgical History Includes: Procedures from this encounter Procedures Code Diagnosis Performing Provider Service L ocation Service Date education and instructions Last Documented On 2 2:32PM ; [facility] COVID PCR pending Last Documented On 2 6:04PM ; [facility] Surgical History Last Updated No surgical / procedural history or no s ignificant history 11/13/2021 Last Documented On 2 6:09PM ; [facility] Medical History Includes: Medical History addressed during this encounter Description Last Updated h/o heart mumur 11/13/2021 Last Documented On 2 6:09PM ; [facility] No recent change in medical history 10/29 Last Documented On 2 6:09PM ; [facility] Family History Includes: Family History addressed during this encounter No Family History Recorded Review of Systems Includes: Review of Systems from this encounter Systemic: Not feeling poorly (malaise). No fever, no chills, and no night sweats. Head: Headache. No facial pain and no sinus pain. Neck: No neck pain and no neck stiffness. Eyes: No vision problems and no photophobia. Otolaryngeal: No earache, no nasal discharge, and no hoarseness. Sore throat. Cardiovascular: Chest pain or discomfort and palpitations. Pulmonary: No dyspnea. Cough. No hemoptysis and no wheezing. Gastrointestinal: Normal appetite. Nausea and vomiting. No abdominal pain and no diarrhea. Musculoskeletal: No muscle aches. Neurological: Dizziness. No fainting, no motor disturbances, and no sensory disturbances. Skin: No rash. Mental Status Includes: Mental Status from this encounter Description Oriented to time, place, and person Functional Status Includes: Functional Status from this encounter No Functional Status Recorded Physical Exam Includes: Physical Exam from this encounter Allergies Includes: Active Allergies No Known Allergies Encounters Encounter Provider Location Date Check-In Time Check-Out Time Diagnosis FOLLOW UP YARY MICHAUD [facility] 11/13/19 22 2:20PM 3:09PM Assessment [use For S.o.a.p. Note Free Text] Insurance Includes: Active Insurance Policies Plan Name Member ID Group # Subscriber Relationship Effect shannon Dates 1 - [employer] [facility] S CODE FACILITY BILLING [id number] Beto Brady Child 10/11/2011 - Unknown Clinical Notes Includes: Clinical Notes from this encounter No Clinical Notes Recorded
--- OUTSIDE RECORDS SUMMARY | 2025-01-23 19:14 | XMS_ITS | Clinical Summary ---
Author Organization [facility] Address [address] [place] [id number] Phone Care Team Providers Care Correctional Supply Supervisor Name Role Phone Unavailable Primary Care Provider [...]
--- OUTSIDE RECORDS SUMMARY | 2025-01-23 19:14 | XMS_ITS | CCD ---
Author Name Gretchen Zazueta PA-C Address [address] [place] [address] Phone Organization [facility] Phone Care Team Providers Care Mathematics Professor Name Role Phone Bela Fenton DO Primary Care Provider Un available Unavailable Chronic Care Management Unavaila ble Summary Purpose DataExchange Insurance Providers Payer name Policy type / Coverage type Covered democrat ID Effective Begin Date Effective End Date [facility] [id number] Unknown Unknown Family History Family History data not found Medication Administered No Medication Administered data Results Observation Observation Code Item Item Code Result Date Service Location CBC W/DIFF 065382 WBC 6.5 x10E3/uL [address] [facility] [address] [id number] CBC W/DIFF 195461 RBC 4.89 x10E6/uL [address] [facility] [address] [id number] CBC W/DIFF 841119 Hemoglobin 14.7 g/dL [address] [facility] [address] [id number] CBC W/DIFF 114801 Hematocrit 43.0 % [address] [facility] [address] [id number] CBC W/DIFF 383704 MCV 88 fL [address] [facility] [address] [id number] CBC W/DIFF 970155 MCH 30.1 pg [address] [facility] [address] [id number] CBC W/DIFF 013555 MCHC 34.2 g/dL [address] [facility] [address] [id number] CBC W/DIFF 654179 RDW 12.6 % 023 [facility] [address] [place], [place] [id number] CBC W/DIFF 427855 Platelets 284 x10E3/uL [address] [facility] [address] [id number] CBC W/DIFF 496398 Neutrophils 66 % [address] [facility] [address] [id number] CBC W/DIFF 200352 Lymphs 27 % [address] [facility] [address] [id number] CBC W/DIFF 676932 Monocytes 6 % [address] [facility] [address] [id number] CBC W/DIFF 700238 Eos 1 % [address] [facility] [address] [id number] CBC W/DIFF 177536 Basos 0 % [address] [facility] [address] [id number] CBC W/DIFF 438861 Immature Cells 03/29 09/29 [address] [facility] [address] [id number] CBC W/DIFF 631331 Neutrophils (Absolute) 4.2 x10E3/uL [address] [facility] [address] [id number] CBC W/DIFF 159001 Lymphs (Absolute) 1.8 x10E3/uL [address] [facility] [address] [id number] CBC W/DIFF 290188 Monocytes(Absolu t e) 0.4 x10E3/uL [address] [facility] [address] [id number] CBC W/DIFF 093003 Eos (Absolute) 0.1 x10E3/uL [address] [facility] [address] [id number] CBC W/DIFF 803328 Baso (Absolute) 0.0 x10E3/uL [address] [facility] [address] [id number] CBC W/DIFF 922774 Immature Granulocytes 0 % [address] [facility] [address] [id number] CBC W/DIFF 234440 Immature Grans (Abs) 0.0 x10E3/uL [address] [facility] [address] [id number] CBC W/DIFF 036488 NRBC [address] [facility] [address] [id number] CBC W/DIFF 892662 Hematology Comments: [address] [facility] [address] [id number] LIPID PANEL 112341 Cholesterol, Total 135 mg/dL [address] [id number] LIPID PANEL 486433 Triglycerides 121 mg/dL 03/29 09/[address] [id number] LIPID PANEL 672774 HDL Cholesterol 2085-9 41 mg/dL [address] [id number] LIPID PANEL 105909 VLDL Cholesterol Sam 22 mg/dL [address] [id number] LIPID PANEL 293741 LDL Chol Calc (NIH) 72 mg/dL [address] [id number] LIPID PANEL 881476 Comment: [address] [facility] [address] [id number] Urinalysis, Routine 369380 Specific [place] 1.[address] [id number] Urinalysis, Routine 305528 pH 5.[address] [id number] Urinalysis, Routine 908065 Urine-Color Yellow [facility] [facility] [id number] Urinalysis, Routine 879972 Appearance Clear [address] [facility] [id number] Urinalysis, Routine 864696 WBC Esterase Negative [address] [facility] [id number] Urinalysis, Routine 787785 Protein Negative [address] [facility] [id number] Urinalysis, Routine 963091 Glucose Negative 023 [facility] [address] [place] [id number] Urinalysis, Routine 078365 Ketones Negative 023 [facility] [address] [place] [address] [id number] Urinalysis, Routine 943206 Occult Blood 3+ [address] [facility] [address] [id number] Urinalysis, Routine 358171 Bilirubin Negative [address] [facility] [address] [id number] Urinalysis, Routine 929982 Urobilinogen,Semi -Qn 0.2 mg/dL [address] [facility] [address] [id number] Urinalysis, Routine 008827 Nitrite, Urine Negative [address] [facility] [address] [id number] Urinalysis, Routine 837681 Microscopic Examination See below: 023 [facility] [address] [place] [address] [id number] Microscopic Examination 714466 WBC 6-10 /hpf 023 [facility] [address] [place] [address] [id number] Microscopic Examination 992615 RBC >30 /hpf 023 [facility] [address] [place] [address] [id number] Microscopic Examination 718059 Epithelial Cells (non renal) 0-10 /hpf 023 [facility] [address] [place] [address] [id number] Microscopic Examination 310485 Epithelial Cells (renal) 023 [facility] [address] [place] [address] [id number] Microscopic Examination 955963 Casts None seen /lpf 023 [facility] [address] [place] [address] [id number] Microscopic Examination 326189 Cast Type 023 [facility] [address] [place] [address] [id number] Microscopic Examination 310156 Crystals 023 [facility] [address] [place] [address] [id number] Microscopic Examination 282634 Crystal Type [address] [facility] [address] [id number] Microscopic Examination 453014 Mucus Threads 07/21/2 023 [facility] [address] [place] [id number] Microscopic Examination 703643 Bacteria None seen [address] [facility] [address] [id number] Microscopic Examination 504269 Yeast [address] [facility] [address] [id number] Microscopic Examination 998277 Trichomonas [address] [facility] [address] [id number] Microscopic Examination 197695 Comment [address] [facility] [address] [id number] TSH 872259 TSH 1.630 uIU/mL [address] [facility] [address] [id number] COMPREHEN METABOLIC PANEL 2 286162 Glucose 88 mg/dL [address] [facility] [address] [id number] COMPREHEN METABOLIC PANEL 2 206831 BUN 3094-0 6 mg/dL [address] [facility] [address] [id number] COMPREHEN METABOLIC PANEL 2 614402 Creatinine 0.76 mg/dL [address] [facility] [address] [id number] COMPREHEN METABOLIC PANEL 2 822817 eGFR 116 mL/min/1.73 [address] [facility] [address] [id number] COMPREHEN METABOLIC PANEL 2 338688 BUN/Creatinine Ratio 8 [address] [facility] [address] [id number] COMPREHEN METABOLIC PANEL 2 125733 Sodium 138 mmol/L [address] [facility] [address] [id number] COMPREHEN METABOLIC PANEL 2 502249 Potassium 4.2 mmol/L [address] [facility] [address] [id number] COMPREHEN METABOLIC PANEL 2 283875 Chloride 103 mmol/L [address] [facility] [address] [id number] COMPREHEN METABOLIC PANEL 2 895383 Carbon Dioxide, Total 21 mmol/L 023 [facility] [address] [id number] COMPREHEN METABOLIC PANEL 2 267462 Calcium 9.5 mg/dL [address] [facility] [address] [id number] COMPREHEN METABOLIC PANEL 2 222093 Protein, Total 7.6 g/dL 023 [facility] [address] [id number] COMPREHEN METABOLIC PANEL 2 506421 Albumin 4.8 g/dL 023 [facility] [address] [id number] COMPREHEN METABOLIC PANEL 2 470531 Globulin, Total 2.8 g/dL 023 [facility] [address] [id number] COMPREHEN METABOLIC PANEL 2 333639 A/G Ratio 1.7 023 [facility] [address] [id number] COMPREHEN METABOLIC PANEL 2 814104 Bilirubin, Total 0.5 mg/dL 023 [facility] [address] [id number] COMPREHEN METABOLIC PANEL 2 595893 Alkaline Phosphatase 85 IU/L 0[address] [facility] [id number] COMPREHEN METABOLIC PANEL 2 477008 AST (SGOT) 18 IU/L 023 [facility] [address] [id number] COMPREHEN METABOLIC PANEL 2 138975 ALT (SGPT) 20 IU/L 023 [facility] [address] [id number] Reason For Visit No Reason For Visit data Plan of Care Planned Activity Notes Codes Status Date Appointment: Gretchen Zazueta WPtel: [facility] Karrie [id number] NEW PATIENT PCP 07/17 MIN 2022 Medical Equipment No Medical Equipment data Advance Directives No Advance Directive data
--- OUTSIDE RECORDS SUMMARY | 2025-01-23 19:14 | XMS_ITS ---
Care Plan - [facility] Created on: January 23, 2025 Poppy Brady : 2005 Sex: Female Author Organization [facility] Address [address] [place] [address] Phone Care Team Providers Care Fuel Oil Clerk Name Role Phone Unavailable Unavailable Unavailable
--- OUTSIDE RECORDS SUMMARY | 2025-01-23 19:15 | XMS_ITS ---
Author Organization [facility] Address [address] [place] [address] Care Team Providers Care Analysis Internship Name Role Phone Paco Sherman Primary Care Provider [phone] REASON FOR VISIT PRTL: Referral for Equipment Installer Encounters Encounter Location Date Provider Diagnosis [address] [address] 06/11/2024 Paco Sherman PLAN OF TREATMENT No Information Progress Notes * Obie GUSTAFSONSandyOB:2005 (19 yo F)Acc No.[id number]:06/11/2024 Patient:??Poppy GUSTAFSON :2005?Age:19 Y?Sex:Fe male Address:[address] [place] [address] Subjective: * Chief Complaints: * ?PRTL: Referral for Rhe umatologist * Medical History:? * Surgical History:?? * Hospitalization/Major Diagno stic Procedure:?? * Medications:?? Objective: Assessment: Plan: * Treatment: * Procedure Codes:?? * true * Date:??
--- OUTSIDE RECORDS SUMMARY | 2025-01-23 19:15 | XMS_ITS | Encounter Summary ---
Author Organization [facility] Address [address] [place] [address] Care Team Providers Care Lockstitch Cup Setter Name Role Phone System, Pcp Not In Primary Care Provider Unavail able Encounter Details Date Type Department Care Team (Late st Contact Info) Description 01/23/2025 Telephone [facility] [address] [place] [address] Mame Cavazos, Resident [address] [place] [address] Social History Tobacco Use Types Packs/Day Years Used Date Smoking Tobacco: Never Smokeless Tobacco: Never Comments No Sex and Gender Information Value Date Recorded Sex Assigned at Not on file Legal Sex Female 15:46 EST Gender Identity Not on file Sexual Orientation Choose not to disclose 2022 17:24 EST documented as of this encounter Plan of Treatment Not on file documented as of this encounter Visit Diagnoses Not on filedocumented in this encounter Care Teams Lockstitch Cup Setter Relationship Specialty Start Date End Date System, Pcp Not In Unknown MS PCP - General 08/23/24 documented as of this encounter
--- OUTSIDE RECORDS SUMMARY | 2025-01-23 19:15 | XMS_ITS | Clinical Summary ---
Author Organization [facility] Address [address] [place] [address] Phone Care Team Providers Care Street Supervisor Name Role Phone Unavailable Unavailable Unavailable Reason for Visit and Chief Complaint The Chief Complaint is: 16y/old c/o feeling dizzy, and also shortness of breath x today Problems Includes: Problems addressed during this encounter and other active Problems No Active Problems Plan of Treatment A Chest X ray was performed- Normal chest x ray, No tB is noted Explained to patient that it is likely too soon to start playing large instrument again after recoving from coronovirus Note given to refrain from playing for another week and to get cleared by stockbroker before start playing instrument again. Stay hydrated and continue to rest. Pt vitals are normal. Ambulated out nad noted, states she is not dizzy and no sob at time of discharge. - Last Documented On 11/22/2021 3:09PM ; [facility] Pending Tests Order Diagnosis Results Due Ordering P rovider Radiology Inhouse - X-RAY CHEST CHEST; 2 VIEWS Shortness of breath 11/22/21 Vianey Clements [facility] Last Documented On 2:01PM ; [facility] Assessments Includes: Assessments from this encounter No Assessments Recorded Medical Equipment - Implanted Devices Includes: Current Devices No Medical Equipment Recorded Medications Includes: Medications discussed during this encounter and other current Medications No Medications Taken Medications Administered Includes: Administered Medications from this encounter No Administered Medications Recorded Vital Signs Includes: Vital Signs from this encounter Vital Name 11/22/2021 01:04P Blood Pressure Sitting R 102/71 BP Cuff Size Regular Pulse Rate-Sitting (bpm) 97 Temp-Oral (F) 97.5 Height (in) 63 Weight (lb) 111 Body Mass Index (kg/m2) 19.7 BMI Percentile (percentile) 34 Body Surface Area (m2) 1.5 Oxygen Saturation (%) 98 Last Documented: On 11/22/2021 1:10PM ; [facility] Results Includes: Results discussed during this encounter No Results Recorded For Specified Dates History of Present Illness Includes: History of Present Illness from this encounter STEPHY Brady is a 16 year old female. Pt states today was her first day back at playing the [employer] after getting over coronovirus states last week she was seen for cardiac workup in [place] and was diagnosed with coronovirus and a bruised left lung from coughing today during music practice pt started to feel dizzy while playing instrument so was sent to school nurse and sent home pt states she feels a little winded and lightheaded denies cough states she feels a little sob speaking in full sentences resp easy unlabored symmetric. Social History No Social History Recorded - Smoking Status Unknown Procedures and Surgical History Includes: Procedures from this encounter Procedures Code Diagnosis Performing Provider Service L ocation Service Date education and instructions Last Documented On 2 2:01PM ; [facility] Surgical History Last Updated No surgical / procedural history or no s ignificant history 11/22/2021 Last Documented On 2 3:09PM ; [facility] Medical History Includes: Medical History addressed during this encounter Description Last Updated No medical history or no significant his tory 11/22/2021 Last Documented On 2 3:09PM ; [facility] Family History Includes: Family History addressed during this encounter No Family History Recorded Review of Systems Includes: Review of Systems from this encounter Systemic: Not feeling poorly (malaise). No fever, no chills, and no night sweats. Neck: No neck pain and no neck stiffness. Cardiovascular: No chest pain or discomfort, no palpitations, and the heart rate was not fast. Pulmonary: Dyspnea. No cough, no hemoptysis, and no wheezing. Gastrointestinal: Normal appetite, no dysphagia, and no heartburn. No nausea, no vomiting, no abdominal pain, and no melena. No diarrhea. Endocrine: No excessive sweating. Neurological: Dizziness. No vertigo, no fainting, no motor disturbances, and no sensory disturbances. Psychological: No anxiety, no depression, and no sleep disturbances. Skin: No rash. Mental Status Includes: Mental Status from this encounter Description Cognitive functioning was no rmal Oriented to time, place, and person No anxiety Functional Status Includes: Functional Status from this encounter No Functional Status Recorded Physical Exam Includes: Physical Exam from this encounter Allergies Includes: Active Allergies No Known Allergies Encounters Encounter Provider Location Date Check-In Time Check-Out Time Diagnosis FOLLOW UP YARY Zee APN [facility] 2 1:00PM 2:12PM Insurance Includes: Active Insurance Policies Plan Name Member ID Group # Subscriber Relationship Effect shannon Dates 1 - [facility] S CODE FACILITY BILLING [id number] Beto Brady Child 10/11/2011 - Unknown Clinical Notes Includes: Clinical Notes from this encounter No Clinical Notes Recorded
--- OUTSIDE RECORDS SUMMARY | 2025-01-23 19:15 | XMS_ITS | Clinical Summary ---
Author Organization [facility] Address [address] [place] [address] Phone Care Team Providers Care Weld Inspector Name Role Phone Unavailable Unavailable Unavailable Reason for Visit and Chief Complaint The Chief Complaint is: 13y/o female pt comes in with headache, sore throat, nausea, left ear pain xyester ~Meds: Alieve Problems Includes: Problems addressed during this encounter and other active Problems No Active Problems Plan of Treatment - Return to the clinic if condition worsens or new symptoms arise - Last Documented On 06/09/2018 10:22AM ; [facility] - Go to the emergency room if condition worsens - Last Documented On 06/09/2018 10:22AM ; [facility] -Strep test negative, culture sent -Patient with ear infection in the left ear and throat infection. High suspicion of strep throat based on examination -Increased rest and hydration -May use Tylenol or Advil for pain, fevers, headaches -May try salt water gargles -May use OTC medicine for symptom relief like lozenges -Change toothbrush in 48 hours -Follow up with PMD in 2-3 days or sooner if symptoms worsen or new symptoms arise - Last Documented On 06/09/2018 10:22AM ; [facility] Pending Tests Order Diagnosis Results Due Ordering P lyudmila OFFICE PROCEDURES RAPID STREP Acute pharyngi tis, unspecified 06/09/18 Jyoti Butler M.D. Last Documented On 8 10:22AM ; [facility] Assessments Includes: Assessments from this encounter Findings - Otitis media - Last Documented On 06/09/2018 10:22AM ; [facility] - Acute pharyngitis - Last Documented On 06/09/2018 10:22AM ; [facility] Medical Equipment - Implanted Devices Includes: Current Devices No Medical Equipment Recorded Medications Includes: Medications discussed during this encounter and other current Medications New / Renewed during this visit Jyoti Butler M.D. on 06/09/2018 Amoxicillin 875MG Oral Tablet Provider: Jyoti Mahmood 10 day supply: 20 tablet, 0 refills Diagnosis: Acute serous otitis media, left ear 1 twice a day Pharmacy: [facility]/pharmacy #[phone] [facility] [place] [address] - Last Documented On 8 10:16AM By Roxy Inman ; [facility] Medications Administered Includes: Administered Medications from this encounter No Administered Medications Recorded Vital Signs Includes: Vital Signs from this encounter Vital Name 06/09/2018 09:59A Blood Pressure Sitting R 103/69 Pulse Rate-Sitting (bpm) 105 Temp-Oral (F) 97.8 Height (in) 63 Weight (lb) 101 Body Mass Index (kg/m2) 17.9 BMI Percentile (percentile) 35 Body Surface Area (m2) 1.4 Oxygen Saturation (%) 98 Last Documented: On 06/09/2018 10:04A M ; [facility] Results Includes: Results discussed during this encounter No Results Recorded For Specified Dates History of Present Illness Includes: History of Present Illness from this encounter STEPHY Brady is a 13 year old female. Patient with sore throat, left ear pain, headaches, nausea x 1 day. No fevers or chills. No sob or wheezing. Tried motrin and aleve with no relief. No rashes. Social History No Social History Recorded - Smoking Status Unknown Procedures and Surgical History Includes: Procedures from this encounter Procedures Code Diagnosis Performing Provider Service L ocation Service Date education and instructions Last Documented On 8 10:11AM ; [facility] rapid group identification for streptoco ccus was negative Last Documented On 8 10:22AM ; [facility] Surgical History Last Updated No surgical / procedural history or no s ignificant history 06/09/2018 Last Documented On 8 10:22AM ; [facility] Medical History Includes: Medical History addressed during this encounter Description Last Updated No reported medical history or no significant history ~Vaccines up to date 06/09/2018 Last Documented On 8 10:22AM ; [facility] Family History Includes: Family History addressed during this encounter No Family History Recorded Review of Systems Includes: Review of Systems from this encounter Systemic: Not feeling poorly (malaise). No fever, no chills, and no night sweats. Head: Headache. No facial pain and no sinus pain. Neck: No neck pain, no neck stiffness, and no lump or swelling in the neck. Otolaryngeal: Earache. No nasal discharge and no hoarseness. Sore throat. No mouth sores. Cardiovascular: No chest pain or discomfort, no palpitations, and the heart rate was not fast. Pulmonary: No dyspnea, no cough, no hemoptysis, and no wheezing. Gastrointestinal: No heartburn. Nausea. No vomiting, no abdominal pain, and no melena. No diarrhea. Genitourinary: No dysuria. Musculoskeletal: No muscle aches. Neurological: No dizziness. Skin: No pruritus. No skin lesions and [...] Time Check-Out Time Diagnosis FOLLOW UP YARY Butler M.D. [facility] 06/09/20 18 9:52AM 10:18AM Otitis Media,Pharyn gitis Acute Insurance Includes: Active Insurance Policies Plan Name Member ID Group # Subscriber Relationship Effect shannon Dates 1 - [facility] S CODE FACILITY BILLING [id number] Beto Brady 10/11/2011 - Unknown Clinical Notes Includes: Clinical Notes from this encounter No Clinical Notes Recorded
--- OUTSIDE RECORDS SUMMARY | 2025-01-23 19:15 | XMS_ITS | Clinical Summary ---
Author Organization [facility] Address [address] [place] [address] Care Team Providers Care Personal Counselor Name Role Phone System, Pcp Not In Primary Care Provider Unavail able Allergies Active Allergy Reactions Criticality Noted Date Comments Pollen Itching Low 03/21/2024 Shellfish-Derived Products Anaphylaxis High 03/21/20 Medications SUMAtriptan (IMITREX) 50 MG tabletIndication s:Migraine Take 1 pill at the onset of headache. If no improvement in 2 hours, can take a 2nd pill. At max can take 2 pills in a day and 4 pills in a week. Indications: Migraine Headache 9 Tablet 3 10/25/19 25 Active venlafaxine (EFFEXOR-XR) 37.5 MG 24 hr capsuleIndicatio ns:Migraine Take 1 capsule per day for one week followed by 2 capsules per day from the following week. Indications: Migraine Headache 60 Capsule 1 12/28/19 25 025 Active venlafaxine (EFFEXOR-XR) 37.5 MG 24 hr capsuleIndicatio ns:Migraine Take on capsule daily for one week then two capsules daily Indications: Migraine Headache 49 Capsule 01/07/20 25 Active topiramate (TOPAMAX) 25 MG tabletIndication s:Migraine Take one Tablet (25 mg) 2 times daily by mouth Indications: Migraine Headache 60 Tablet 3 01/24/20 25 Active propranolol (INDERAL) 20 MG tabletIndication s:Migraine preventative TAKE ONE TABLET (20 MG) 2 TIMES DAILY BY MOUTH INDICATIONS: MIGRAINE PREVENTATIVE 180 Tablet 11/18/19 25 025 Discontin ued(Side effects) Active Problems Problem Noted Date Diagnosed Date Headache, common migraine 10/25/2024 Encounters Date Type Department Care Team Description 01/23/2025 Telephone [facility] [address] [place] [address] Mame Cavazos, 01/23/[address] [phone] Valarie Couch PA Question (Questions about possible medication side effects) 01/06/[address] [address] Qiana Couch MD Medication Problem 01/05/[address] [address] Divina Milton LPN Couch - medication 12/30/[address] [address] Qiana Couch MD Other (Couch/ wants a call back today ) 12/27/[address] [phone] Qiana Couch MD Follow-up 12/27/[address] [address] Qiana Couch MD Question (Pt has concerns about side effects to the Propranolol and stating that they are getting worse. ) 11/18/[address] [phone] Qiana Couch MD 10/25/2024 15:38 EST - 10/25/2024 23:[address] [facility] EKG [address] [place] [id number] Qiana Couch MD Headache, common migraine Discharge Disposition: Home or Self Care 10/25/2024 14:15 EST Office Visit [address] [address] Mame Cavazos Resident Headache, common migraine (Primary Dx) 10/25/[address] [address] Mame Cavazos, Medication Refill from Last 3 Months Social History Tobacco Use Types Packs/Day Years Used Date Smoking Tobacco: Never Smokeless Tobacco: Never Tobacco Cessation:Counseling Given: Not Answered Comments No Sex and Gender Information Value Date Recorded Sex Assigned at Not on file Legal Sex Female 15:46 EST Gender Identity Not on file Sexual Orientation Choose not to disclose 2022 17:24 EST Last Filed Vital Signs Vital Sign Reading Time Taken Comments Blood Pressure 115/81 10/25/2024 1415 EST Pulse 116 10/25/2024 1415 EST Temperature 36.6 ??C (97.8 ??F) 08/24/2024 0157 EST Respiratory Rate 20 08/24/2024 0157 EST Oxygen Saturation 100% 08/24/2024 015 EST Inhaled Oxygen Concentration - - Weight 52.2 kg (115 lb) 10/25/2024 1415 EST Height 160 cm (5' 3 ) 10/25/2024 1415 EST Body Mass Index 20.37 10/25/2024 1415 EST Plan of Treatment Health Maintenance Due Date Last Done Comments Wellness Exam 02/06/2008 Yearly Depression Screen 2017 Meningococcal B Vaccine (1 o f 2 - Standard) 2021 TETANUS / TDAP SHOT 02/06/2024 COVID-19 (SARS-CoV-2) Vaccin e ( season) 2024 03/02/2021, 02/09/2021 FLU VACCINE (Season Ended) 05/29/202505/29, 07/13/2013 Meningococcal Vaccine Aged Out 05/29/2016 No robby janell eligible based on patient's age to complete this topic Pneumococcal Immunization 0-49 Aged Out No longer eligible based on patient's age to complete this topic Procedures Procedure Name Priority Date/Time Associated Diagnosis Comments EKG 12 LEAD UNIT PERFORMED Routine 10/25/2024 16:10 EST Headache, common migraine from Last 3 Months Results * EKG ADULT (10/25/2024 16:10 EST) Ventricular Rate 98 BPM [facility] Atrial Rate 98 BPM [facility] P-R Interval 132 ms [facility] QRS Duration 110 ms [facility] Q-T Interval 338 ms [facility] QTC Calculation (Bazett) 431 ms [facility] EAP P Dwight 67 degrees [facility] EAP R Dwight 98 degrees [facility] T Dwight 23 degrees [facility] 10/25/2024 16:1 0 EST 10/25/2024 18:44 EST Narrative [facility] - 10/25/2024 18:44 EST Normal sinus rhythm Rightward axis Incomplete right bundle branch block Nonspecific T wave abnormality Abnormal ECG When compared with ECG of 13-NOV-2021 16:25, No significant change was found Confirmed by MAULIK WOODS MD ([id number]) on 10/25/2024 6:44:28 PM Procedure Note Maulik Woods MD - 10/25/2024 Normal sinus rhythm Rightward axis Incomplete right bundle branch block Nonspecific T wave abnormality Abnormal ECG When compared with ECG of 13-NOV-2021 16:25, No significant change was found Confirmed by MAULIK WOODS MD ([id number]) on 10/25/2024 6:44:28 PM us Qiana Couch MD ECG ORDERABLES Final Result [facility] EAP [address] [place] [address] from Last 3 Months Insurance /[facility] Care Teams Personal Counselor Relationship Specialty Start Date End Date System, Pcp Not In Unknown [place] PCP - General 08/23/24
--- OUTSIDE RECORDS SUMMARY | 2025-01-23 19:15 | XMS_ITS | Continuity of Care Document ---
Author Organization [facility] Address [address] [place] [address] Phone Care Team Providers Care Joy Loading Machine Operator Name Role Phone Donnell CANO, Helen Unavailable Unavailable Allergies, Adverse Reactions, Alerts Substance Reaction Status Criticality No Known Allergies Active No Inform ation Medications Medication Instructions Dosage Effective Dates (start - stop) Status Comments EpiPen 0.3 mg/0.3 mL injection, auto-injector inject 0.3 milliliter by intramuscular route once as needed for anaphylaxis 0.3 MG - Active EpiPen 0.3 mg/0.3 mL injection, auto-injector inject 0.3 milliliter by intramuscular route once as needed for anaphylaxis 0.3 MG - No Longer Active EpiPen 0.3 mg/0.3 mL injection, auto-injector inject 0.3 milliliter by intramuscular route once as needed for anaphylaxis 0.3 MG - No Longer Active Vestura (28) 3 mg-0.02 mg tablet - No Longer Active Problems Condition Type Effective Dates (start - stop) Clini mica Status Comments No Known Problems Procedures Procedure Date OV, Estab Pt, Level III Percut Allergy Skin Tests No Charge Office Visit Percut Allergy Skin Tests OV, New Pt, Level III Percut Allergy Skin Tests OV, Estab Pt, Level III OV, New Pt, Level III Removal Impacted Cerumen Req Instrumenta tion Advance Directives Directive Yes / No Effective Date File Name No Information Encounters Encounter Description Practice Location Reason(s) For Visit Diagnoses Date Provider Providers Copied on Encounter OV, Estab Pt, Level III [facility], [address], [place], [place], [id number] , [place] tel: [phone] [facility] Follow Up (chief complaint) Food allergyDermatitis due to ingested food 4 Donnell Cervantes. [address], [place], [place], [id number] , [place]. tel: [phone] [facility], [address], [place], [place], [id number] , [place] tel: [phone] [facility] allergy (chief complaint) Non-allergic rhinitisOther allergic rhinitis 3 Donnell Cervantes. [address], [place], [place], [id number] , [place]. tel: [phone] OV, New Pt, Level III [facility], [address], [place], [place], [id number] , [place] tel: [phone] [facility] Follow Up (chief complaint) Food allergyDermatitis due to ingested food 3 Donnell Cervantes. [address], [place], [place], [id number] , [place]. tel: [phone] Referring Provider: Jose Alejandro Driver DO, [address], [place], [address] . tel:[phone] OV, Estab Pt, Level III [facility], [address], [place], [place], [id number] , tel: [phone] [facility] Follow Up (chief complaint) Hypertrophy of tonsils 3 Niyominerva DO Jose Alejandro. [address], [facility] [place], [place], [id number] , . tel: [phone] OV, New Pt, Level III [facility], [address], [place], [place], [id number] , tel: [phone] [facility] sore throat (chief complaint) Hypertrophy of tonsilsImpacted cerumen, bilateral Fe 3 Villa DO Jose Alejandro. [address], [address] [place] [address], [place], [place], [id number] , . tel: [phone] Family History Family Member Type Diagnosis Age At Onset Problem (finding) Family history of raise d blood lipids Problem (finding) Family History of Aller gies Problem (finding) Family History of Diabe viviana Problem (finding) Family history of asthm a Problem (finding) Family history of learn ing disability Payers Payer name Insurance type Covered constitution party ID [facility]ose[id number] Social History Type Description Quantity Date Captured Comments Alcohol Use Details No Caffeine Use Details Tobacco Use Status No Information Smoking Status Never smoker Non-Smoking Tobacco Use Details : No Details Available : No Details Available Sex Female Vital Signs Date / Time: Height Weight BMI Pulse Rate Blood Pressure Temperature Respiratory Rate Body Surface Area Head Circumference Head Circ. Percentile Wt./Nickolas. Percentile BMI percentile Pulse Ox Inhaled Ox 11:11 AM 63.00 in 52.163 kg (115.00 lbs) 20.3 7 kg/m eter (2) 69 /min 105/80 mm[Hg] 34 99 % Chief Complaint And Reason For Visit From encounter dated '03/07/2024 11:30'. Follow Up (chief complaint). Description: pt here for allergiesshellfish - airways felt like it wasclosing, sore throat/ swollen lips/ hives and does have an epipen OAS - apples/ berries PN - sore throat/ itchy throat no asthma, no medication allergiesno petsno smokingno sign PMH : irregular periods high HR at times Reason For Referral Reason For Referral No Information History Of Present Illness Encounter Date Complaint History Of Prese nt Illness Follow Up pt here for richy rgiesshellfish - airways felt like it was closing, sore throat/ swollen lips/ hives and does have an epipen OAS - apples/ berries PN - sore throat/ itchy throat no asthma, no medication allergiesno petsno smokingno sign PMH : irregular periods high HR at times allergy allergy (comments) Pt here for e nvironmental skin testing Follow Up Pt here for richy rios noticed throat tightening while shrimp chips were being fried then when she ate them she noted throat tightness/ lip tingling/ RYDER/ watery eyes and nasal congestion and some SOB. the last time she had shrimp was 4 weeks ago. no asthma, eating all foods , no medication allergies AR - no seasonal allergiesno petsno smokingno sign PMH Follow Up pt had strep thr oat 2 weeks ago (HAS PAPER FROM )was on amoxil x 10dstill feels sore throat sore throat Context: tonsils present. Pertinent negatives include abdominal pain, dyspnea, fever, headache, hoarseness, nasal congestion, otalgia, post-nasal drainage, rash and vomiting. Additional information: always had enlarged tonsils, never affected sleepgets tonsillitis with some frequency - once every 2 mo? goes to , usu gets abx (amoxil)no strep throat Functional Status Date Functional Assessmen t No Information Medications Administered Medication Instructions Dosage Effective Dates (start - stop) Status Comments EpiPen 0.3 mg/0.3 mL injection, auto-injector inject 0.3 milliliter by intramuscular route once as needed for anaphylaxis 0.3 MG - No Longer Active Instructions Date Instruction Additional Infor stanislaw seems to be food all ergy but last year had negative SPTdeclines 2nd round of aeroallergen and ok w/ avoiding epipen at all times eat foods you toleratediscussed OAS and how to warm up fruits/ peel them avoid Peanuts Related to Food allergy skin test negative a nd with minimal symptoms followup as needed Related to Non-allergic rhinitis continue avoiding sh ellfish for nowepipen - she knows how to use it and educated on telling roommates about food allergy as well please do bloodwork Related to Food allergy 1 strep on boardmedr ol dose packrtc if recurrent strep Related to Hypertrophy of tonsils Cerumen removedPatie nt tolerated wellRTC 6 mo for cleaning Related to Impacted cerumen, bilateral Patient has 3+ crypt ic tonsils todayWith next throat infection patient will return to office to be examinedConsideration of tonsillectomy prior to going to college in the fall Related to Hypertrophy of tonsils Assessments Type Assessment Date assessment Food allergy Mental Status Date Cognitive Assessment Orientation - [place] ed to time, place, person, situation. Patient Care Teams Name Effective Dates (start - stop) Status Members No Information
--- OUTSIDE RECORDS SUMMARY | 2025-01-23 19:15 | XMS_ITS | Patient Health Record ---
Author Organization [facility] Address [address] [place] [address] Care Team Providers Care Coach Operator Name Role Phone Paco Sherman Primary Care Provider Nikky Woodward Unavailable [phone] ALLERGIES Allergen (clinical drug ingredient) Drug/Non Drug Allergy documented on EMR Reaction Allergy Type Onset Date Status Shellfish (FN) Shellfish-derived Products anaphylaxis Drug Allergy Active RESULTS Component Value Reference Range Notes Rheumatoid Arthritis Profile (RA & CCP Ab IgA, IgG)(910006) Reviewed date:04/19/2024 11:42:07 AM Interpretation: Performing Lab:[facility], [address] [place] [address] [id number], Phone - [phone], Director - MDJodry Notes/Report: Rheumatoid Factor (RF) <10.0 <14.0 IU/mL Anti-CCP Ab, IgG/IgA 5 0-19 units Negative <20 Weak positive 20 - 39 Moderate positive 40 - 59 Strong positive >59 Testosterone,Free and Total ([id number]) Reviewed date:04/19/2024 11:42:07 AM Interpretation: Performing Lab:[facility], [address] [place] [address] [id number], Phone - [phone], Director - MDJodry Notes/Report: Testosterone 36 13-71 ng/dL Free Testosterone(Direct) 2.1 Not Estab. pg/m L Thyroid [place] Profile (330 015) Reviewed date:04/19/2024 11:42:07 AM Interpretation: Performing Lab:[facility], [address] [place] [address] [id number], Phone - [phone], Director - MDJodry Notes/Report: TSH 2.860 0.450-4.500 uIU/mL No apparent thyroid disorder. Additional testing not indicated. In rare instances, Secondary Hypothyroidism as well as Subclinical Hypothyroidism have been reported in some patients with normal TSH values. FSH, Serum (400594) Reviewed date:04/19/2024 11:42:07 AM Interpretation: Performing Lab:[facility] [address] [id number], Phone - [phone], Director - MDJodry Notes/Report: FSH 2.0 Adult Female Range Follicular phase 3.5 - 12.5 Ovulation phase 4.7 - 21.5 Luteal phase 1.7 - 7.7 Postmenopausal 25.8 - 134.8 LH (Luteinizing Hormone), Se rum ([id number]) Reviewed date:04/19/2024 11:42:07 AM Interpretation: Performing Lab:[facility] [address] [id number], Phone - [phone], Director - Dorinda Notes/Report: LH 3.0 Adult Female Range Follicular phase 2.4 - 12.6 Ovulation phase 14.0 - 95.6 Luteal phase 1.0 - 11.4 Postmenopausal 7.7 - 58.5 Comp. Metabolic Panel (14) ( CMP)([id number]) Reviewed date:04/19/2024 11:42:07 AM Interpretation: Performing Lab:[facility] [address] [id number], Phone - [phone], Director - Dorinda Notes/Report: Glucose 95 70-99 mg/dL BUN 9 6-20 mg/dL Creatinine 0.71 0.57-1.00 mg/dL eGFR 126 >59 mL/min/1.73 BUN/Creatinine Ratio 13 9-23 Sodium 140 134-144 mmol/L Potassium 4.3 3.5-5.2 mmol/L Chloride 103 96-106 mmol/L Carbon Dioxide, Total 21 20-29 mmol/L Calcium 9.8 8.7-10.2 mg/dL Protein, Total 7.9 6.0-8.5 g/dL Albumin 4.6 4.0-5.0 g/dL Globulin, Total 3.3 1.5-4.5 g/dL Bilirubin, Total 0.5 0.0-1.2 mg/dL Alkaline Phosphatase 77 42-106 IU/L AST (SGOT) 15 0-40 IU/L ALT (SGPT) 13 0-32 IU/L Hemoglobin A1c (S/O) ([id number] ) Reviewed date:04/19/2024 11:42:07 AM Interpretation: Performing Lab:[facility] [address] [id number], Phone - [phone], Director - MDJodry Notes/Report: Hemoglobin A1c 5.7 4.8-5.6 % . Prediabetes: 5.7 - 6.4 Diabetes: >6.4 Glycemic control for adults with diabetes: <7.0 Vitamin B12 (565299) Reviewed date:04/19/2024 11:42:07 AM Interpretation: Performing Lab:[facility] [address] [id number], Phone - [phone], Director - MDJodry Notes/Report: Vitamin B12 220 660-2398 pg/mL Vitamin D, 25-Hydroxy (Vit D ) (157227) Reviewed date:04/19/2024 11:42:07 AM Interpretation: Performing Lab:[facility] [address] [id number], Phone - [phone], Director - MDJodry Notes/Report: Vitamin D, 25-Hydroxy 31.8 30.0-100.0 ng/mL Vitamin D deficiency has been defined by the [place] of [employer] and an Endocrine Society practice guideline as a level of serum 25-OH vitamin D less than 20 ng/mL (1,2). The Endocrine Society went on to further define vitamin D insufficiency as a level between 21 and 29 ng/mL (2). 1. IOM ([place] of [employer]). 2010. Dietary reference intakes for calcium and D. [place]: The National Academies Press. 2. Alice MF, Glendy NC, Srini RYDER, et al. Evaluation, treatment, and prevention of vitamin D deficiency: an Endocrine Society clinical practice guideline. JCEM. 2010; 96(7):1911-30. CBC With Differential/Platel et ([id number]) Reviewed date:04/19/2024 11:42:07 AM Interpretation: Performing Lab:[facility] [address] [id number], Phone - [phone], Director - NMTammi Notes/Report: WBC 7.2 3.4-10.8 x10E3/uL RBC 4.76 3.77-5.28 x10E6/uL Hemoglobin 14.9 11.1-15.9 g/dL Hematocrit 44.0 34.0-46.6 % MCV 92 79-97 fL MCH 31.3 26.6-33.0 pg MCHC 33.9 31.5-35.7 g/dL RDW 12.2 11.7-15.4 % Platelets 213 150-450 x10E3/uL Neutrophils 65 Not Estab. % Lymphs 26 Not Estab. % Monocytes 7 Not Estab. % Eos 2 Not Estab. % Basos 0 Not Estab. % Immature Cells Neutrophils (Absolute) 4.6 1.4-7.0 x10E3/uL Lymphs (Absolute) 1.9 0.7-3.1 x10E3/uL Monocytes(Absolute) 0.5 0.1-0.9 x10E3/uL Eos (Absolute) 0.2 0.0-0.4 x10E3/uL Baso (Absolute) 0.0 0.0-0.2 x10E3/uL Immature Granulocytes 0 Not Estab. % Immature Grans (Abs) 0.0 0.0-0.1 x10E3/uL NRBC Hematology Comments: Antinuclear Antibodies (TIMOTHY) by IFA, Reflex to 9-biomarker profile, dsDNA, PLATFORM LOADER, Sm, SS-A, SS-B, Scl-70, Chromatin, Sydni-1, Centromere B by Multiplex Immunoassay ([id number]) Reviewed date:04/19/2024 11:42:07 AM Interpretation: Performing Lab:[facility], [address] [place] [address] [id number], Phone - [phone], Director - Dorinda Notes/Report: TIMOTHY by IFA Rfx Titer/Pattern Positive Negative <1:80 Borderline 1:80 Positive >1:80 Please Note: TIMOTHY Multiplex methodology was designed to detect up to 11 antibodies of the 100+ antibodies that may be detected by TIMOTHY IFA methodology. Homogeneous Pattern Nucleolar Pattern Speckled Pattern 1:160 Dense Fine Speckled pattern is noted. This pattern suggests the presence of DFS70 antibody which has a low prevalence in systemic autoimmune rheumatic diseases. ICAP nomenclature: AC-2,4,5,29 Centromere Pattern Spindle Apparatus Pattern Nuclear Membrane Pattern Midbody Pattern Nuclear Dot Pattern PCNA Pattern Centriole Pattern Note: Pattern Potential Disease Association Homogeneous Systemic Lupus Erythematosus, Drug Induced Systemic Lupus Erythematosus, Chronic Autoimmune hepatitis, Juvenile Idiopathic Arthritis Speckled Sjogren Syndrome, Systemic Lupus Erythematosus, Subacute Cutaneous Lupus, Lupus, Congenital Heart Block, Mixed Connective Tissue Disease, Scleroderma-diffuse, Scleroderma-Autoimmune Myositis Overlap Syndrome, Systemic Lupus Wdgwfkmzvthxk-Wspyxoidllq-Krzg immune Myositis Overlap Syndrome, Systemic Autoimmune Rheumatic Disease, Undifferentiated Connective Tissue Disease Nucleolar Systemic Sclerosis, Scleroderma-Autoimmune Myositis Overlap Syndrome, Sjogren Syndrome, Raynaud phenomenon, Pulmonary Arterial Hypertension, Systemic Autoimmune Rheumatic Disease, Cancer Centromere Scleroderma-CREST, Limited Cutaneous SSc, Raynaud's Phenomenon, Primary Biliary Cholangitis Nuclear Dot Primary Biliary Cholangitis Nuclear Primary Biliary Cholangitis, Autoimmune Membrane Hepatitis/Liver disease, Systemic Autoimmune Rheumatic Disease, Autoimmune Cytopenias, Linear Scleroderma, Antiphospholipid Syndrome Anti-DNA (DS) Ab Qn <1 0-9 IU/mL Negative <5 Equivocal 5 - 9 Positive >9 PLATFORM LOADER Antibodies 0.3 0.0-0.9 AI Chua Antibodies <0.2 0.0-0.9 AI Antiscleroderma-70 Antibodies <0.2 0.0-0.9 AI Sjogren's Anti-SS-A <0.2 0.0-0.9 AI Sjogren's Anti-SS-B <0.2 0.0-0.9 AI Antichromatin Antibodies <0.2 0.0-0.9 AI Anti-Sydni-1 <0.2 0.0-0.9 AI Anti-Centromere B Antibodies <0.2 0.0-0.9 AI See below: Autoantibody Disease Association Condition Frequency --------- Antinuclear Antibody, SLE, mixed connective Direct (TIMOTHY-D) tissue diseases --------- dsDNA SLE 40 - 60% --------- Chromatin Drug induced SLE 90% SLE 48 - 97% --------- SSA (Ro) SLE 25 - 35% Sjogren's Syndrome 40 - 70% Lupus 100% --------- SSB (La) SLE 10% Sjogren's Syndrome 30% --------- Sm (anti-Chua) SLE 15 - 30% --------- PLATFORM LOADER Mixed Connective Tissue Disease 95% (U1 nRNP, SLE 30 - 50% anti-ribonucleoprotein) Polymyositis and/or Dermatomyositis 20% --------- Scl-70 (antiDNA Scleroderma (diffuse) 20 - 35% topoisomerase) Crest 13% --------- Sydni-1 Polymyositis and/or Dermatomyositis 20 - 40% --------- Centromere B Scleroderma - Crest variant 80% Lyme Disease Serology w/Refl ex ([id number]) Reviewed date:04/19/2024 11:42:07 AM Interpretation: Performing Lab:[facility] [address] [id number], Phone - [phone], Director - Dorinda Notes/Report: Lyme Total Antibody KATHARINA Negative Negative Lyme antibodies not detected. Reflex testing is not indicated. No laboratory evidence of infection with B. burgdorferi (Lyme disease). Negative results may occur in patients recently infected (less than or equal to 14 days) with B. burgdorferi. If recent infection is suspected, repeat testing on a new sample collected in 7 to 14 days is recommended. Lipid Panel w/ Chol/HDL Rati o ([id number]) Reviewed date:04/19/2024 11:42:07 AM Interpretation: Performing Lab:[facility] [address] [id number], Phone - [phone], Director - Dorinda Notes/Report: Cholesterol, Total 146 100-169 mg/dL Triglycerides 80 0-89 mg/dL HDL Cholesterol 51 >39 mg/dL VLDL Cholesterol Sam 15 5-40 mg/dL LDL Chol Calc ([facility] [[email or web address]]) 80 0-109 mg/dL LDL Calc Comment: T. Chol/HDL Ratio 2.9 0.0-4.4 ratio T. Chol/HDL Ratio Men Women 1/2 Avg.Risk 3.4 3.3 Avg.Risk 5.0 4.4 2X Avg.Risk 9.6 7.1 3X Avg.Risk 23.4 11.0 REASON FOR REFERRAL Reason Lupus work-up please eval and treat, thank you Diagnosis 1 TIMOTHY positive (R76.8) Diagnosis 2 Arthralgia, unspecif ied joint (M25.50) Referral Organization [facility] Referring Provider First Name Paco Referring Provider Last Name Lane Referring Provider Speciality Family Med yg Referred Provider Specialty Rheumatology Referral Priority Routine MEDICATIONS Medication SIG (Take, Route, Frequency, Duration) Notes Start Date End Date Status EPINEPHrine 0.3 MG/0.3ML Injection for 30 Days Active SOCIAL HISTORY Tobacco Use: Social History Observation Description Date Details (start date - stop date) Never Smoker NA - NA Sex Assigned At : Social History Observation Description Sex Assigned At Unknown Tobacco Use/Smoking Question Answer Notes Are you a nonuser Alcohol Questionnaire Question Answer Notes Did you have a drink contain ing alcohol in the past year? Yes How often did you have a dri nk containing alcohol in the past year? 2 to 4 times a month (2 points) How many drinks did you have on a typical day when you were drinking in the past year? 1 or 2 drinks (0 point) How often did you have 6 or more drinks on one occasion in the past year? Never (0 point) Points 2 Interpretation Negative Household Question Answer Notes Marital Status single Section Notes: Diet: Balanced - Whole grains at home; low carb in school Water intake: 48-72 oz/day Exercise: [employer], walking on campus Diet: Balanced - Whole grains at home; low carb in school Water intake: 48-72 oz/day Exercise: [employer], walking on campus VITAL SIGNS Heart Rate 73 /min 03/29/2024 Temperature 98.2 degrees Fahrenheit 03/29/2024 Respiratory Rate 16 /min 03/29/2024 Oximetry 98 % 03/29/2024 Blood pressure diastolic 68 mm Hg 03/29/2024 Weight-kg 53.43 kg 03/29/2024 Height 62 in 03/29/2024 BMI Percentile 49.75 % 03/29/2024 Blood pressure systolic 100 mm Hg 03/29/2024 Weight 117.8 lbs 03/29/2024 BMI 21.54 03/29/2024 Encounters Encounter Location Date Provider Diagnosis [facility] [address] [place] [address] 03/29/2024 Nikky Woodward Encounter for routin e adult health examination without abnormal findings Z00.00 ; Arthralgia, unspecified joint M25.50 ; Irregular periods N92.6 and Acute pain of right knee M25.561 [facility] [address] [place] [address] 04/19/2024 Nikky Woodward TIMOTHY positive R76.8 ; Low vitamin B12 level R79.89 and Elevated hemoglobin A1c R73.09 [facility] [address] [facility] [address] [place] [address] 04/20/2024 Nikky Crissy [facility] [address] [facility] [address] [place] [address] 08/08/2024 [facility] [address] [address] 06/11/2024 [facility] [address] [facility] [address] [place] [address] 04/28/2024 Nikky Kalajanki ASSESSMENTS Encounter Date Diagnosis Assessment Notes Treatment Notes Treatment Clinical Notes Section Notes 04/19/2024 TIMOTHY positive (ICD-10 - R76.8) Rheumatology list to be sent via portal 03/29/2024 Encounter for routine adult health examination without abnormal findings (ICD-10 - Z00.00) I explained to the patient my ready availability and encouraged to call me in the event of urgent medical concerns. 04/19/2024 Low vitamin B12 level (ICD-10 - R79.89) B12 deficiency, including signs and symptoms, was discussed. Recommended pt start SL B12 500 mcg daily. Will recheck levels again in 3-6 months. 03/29/2024 Arthralgia, unspecified joint (ICD-10 - M25.50) 04/19/2024 Elevated hemoglobin A1c (ICD-10 - R73.09) - Discussed dietary and lifestyle modifications in detail. Replace white rice, bread, & pasta with other alternatives like brown rice, quinoa, reduced calorie whole grain breads, chickpea/edamame pasta. Or substitute with vegetables like cauliflower rice, broccoli rice, spaghetti squash. - Aerobic Exercise for 30 minutes a day: walking, running, swimming, biking. - Follow up every 3 months for fasting labs (glucose, HbA1c, lipids, UA) and exam. Call sooner if having any problems or concerns. 03/29/2024 Acute pain of right knee (ICD-10 - M25.561) 03/29/2024 Irregular periods (ICD-10 - N92.6) 04/19/2024 Other Reviewed the above information and instructions with the patient. Patient voiced understanding of plan of care at the time visit was completed. PLAN OF TREATMENT Pending Test Test Name Order Date X ray : Knee, right 4 views 03/29/2024 Insurance Providers Payer Name Payer Address Payer Phone Subscriber Number Group Number Insured Name Patient Relationship to Insured Coverage Start Date Coverage End Date [facility] [employer] [address] [place] [phone] [id number] Beto Brady Child - Insured has Financial Responsibility MEDICAL (GENERAL) HISTORY Medical History History ICD Code Oral allergy Syndrome-fruits Hospitalization History Reason Date(Month/Year) Migraine 03/21/2024
--- OUTSIDE RECORDS SUMMARY | 2025-01-23 19:15 | XMS_ITS | Encounter Summary ---
Author Organization [facility] Address [address] [place] [address] Care Team Providers Care Irrigator Valve Pipe Name Role Phone System, Pcp Not In Primary Care Provider Unavail able Reason for Visit * Reason Onset Date Comments Question 01/23/2025 Questions about possible medication side effects Encounter Details Date Type Department Care Team (Late st Contact Info) Description 01/23/2025 Telephone [facility] [address] [place] [address] Valarie Couch PA [address] [place] [address] Question (Questions about possible medication side effects) Social History Tobacco Use Types Packs/Day Years Used Date Smoking Tobacco: Never Smokeless Tobacco: Never Comments No Sex and Gender Information Value Date Recorded Sex Assigned at Not on file Legal Sex Female 15:46 EST Gender Identity Not on file Sexual Orientation Choose not to disclose 2022 17:24 EST documented as of this encounter Miscellaneous Notes * Telephone Encounter - Lakeisha Epps RN - 01/23/2025 1202 EDT RN called after verifying patient name and , RN called pt to let her know that the provider saidto go to ER and have things checked out to stop medication at this time. Pt states that she is in the ER now. No other questions. * Telephone Encounter - Lakeisha Epps RN - 01/23/2025 1101 EDT RN called after verifying patient name and , Started 01/18/2025 Taking after eating breakfast, Started feeling nausea and feeling like she was outside her body thefir day and with each day taking the medication got worse. It hurts to eat and afterwards is verybloated. On Thursday had her first BM since starting medication and it was solid black. Pt states on Thursday she had another BM and it was black and tarry looking. Pt states she is having black/tar like stool, muscle weakness, fatigue, brain fog, dizziness, and confusion, stating feels like her heart rate is fast as well. RN advised pt go to ER. * Telephone Encounter - Breanna Stephanei Franco - 01/23/2025925 EDT Patient called in requesting a call back Provider: Qiana Couch MD Reason for call: pt called stating she having side affects from venlafaxine (EFFEXOR-XR) 37.5 MG 24hr capsule mood swing, nausea, pt has not been able to eat and is having muscle weakness, fatigue pt states this is not normal for her. Pt is having black/tar like stool, and brain fog, dizziness, confusion. This has been going on since stating the medication. Pt states it hurt to eat and if she does eat she become exteremly bloated. Is this a new issue: Yes Any symptoms: N/A Best time to be reached:jigna Last Appointment: 10/25/24 Next Appointment: Visit date not found Call Back Information Below: Communication History User: Breanna Franco Date/time: 01/23/2025925 Context: Outcome: Phone number: [phone] Phone type: Home Phone Comm. type: Telephone Call type: Incoming Contact: Poppy Brady Relation to patient: Self Letter: Reference CRMs: documented in this encounter Plan of Treatment Not on file documented as of this encounter Visit Diagnoses Not on filedocumented in this encounter Care Teams Irrigator Valve Pipe Relationship Specialty Start Date End Date System, Pcp Not In Unknown [place] PCP - General 08/23/24 documented as of this encounter
--- OUTSIDE RECORDS SUMMARY | 2025-01-23 19:15 | XMS_ITS | Clinical Summary ---
Author Organization [facility] Address [address] [place] [address] Phone Care Team Providers Care Chief Nuclear Medicine Technologist Name Role Phone Unavailable Unavailable Unavailable Reason for Visit and Chief Complaint * CALL BACK Problems Includes: Problems addressed during this encounter and other active Problems No Active Problems Plan of Treatment Pending Tests Order Diagnosis Results Due Ordering P rovider Labs Order COVID19 SARS PCR Encounter for s creening for COVID-19 11/13/21 Don MICHAUD Last Documented On 2 2:42PM ; [facility] Assessments Includes: Assessments from this encounter No Assessments Recorded Medical Equipment - Implanted Devices Includes: Current Devices No Medical Equipment Recorded Medications Includes: Medications discussed during this encounter and other current Medications No Medications Taken Medications Administered Includes: Administered Medications from this encounter No Administered Medications Recorded Results Includes: Results discussed during this encounter No Results Recorded For Specified Dates History of Present Illness Includes: History of Present Illness from this encounter No History of Present Illness Recorded Social History No Social History Recorded - Smoking Status Unknown Medical History Includes: Medical History addressed during this encounter No Medical History Recorded Family History Includes: Family History addressed during this encounter No Family History Recorded Review of Systems Includes: Review of Systems from this encounter No Review of Systems Recorded Mental Status Includes: Mental Status from this encounter No Mental Status Recorded Functional Status Includes: Functional Status from this encounter No Functional Status Recorded Physical Exam Includes: Physical Exam from this encounter No Physical Exam Recorded Allergies Includes: Active Allergies No Known Allergies Encounters Encounter Provider Location Date Check-In Time Check-Out Time Diagnosis * CALL BACK Don MICHAUD 11/15/2021 10:21AM 11:59PM Insurance Includes: Active Insurance Policies Plan Name Member ID Group # Subscriber Relationship Effect shannon Dates 1 - [facility] BILLING [id number] Beto Brady Child 10/11/2011 - Unknown Clinical Notes Includes: Clinical Notes from this encounter No Clinical Notes Recorded
[2025-01-23 23:05] VITALS: BP 123/93; PULSE 99; RESP 16; TEMP 36.4; O2SAT 99
== END 2025-01-23 19:26 | disposition home or self-care (01) ==
PROVIDERS: Physician Assistant; Emergency Provider Emergency Medicine
DX: K92.1 Melena (principal); R11.2 Nausea with vomiting, unspecified; R10.2 Pelvic and perineal pain; Z79.899 Other long term (current) drug therapy
CPT/HCPCS: 36415; 80053; 81001; 82272; 83690; 83735; 84702; 85025; 99283